=== PATIENT | female | born 1945 | race Caucasian/White ===

== ENCOUNTER 2024-07-01 06:50 | Emergency (ER) | payer MEDICARE, OTHER, SELFPAY ==
[2024-07-01 06:51] VITALS: BP 152/58
[2024-07-01 06:54] VITALS: BP 152/58
[2024-07-01 07:00] VITALS: BP 156/54
[2024-07-01 07:10] VITALS: BMI 29.3
--- NOTE | 2024-07-01 07:14 | ED.GENMED ---
History of Present Illness
General
Chief Complaint: Weakness
Source: patient
Exam Limitations: none
Time Seen by Provider: 07/01/24 07:07
History of Present Illness
History of Present Illness:
See MDM
Past History
Past History
ED Past Medical History: COPD, HTN, Hypercholesterolemia, Hypothyroidism, Psychiatric (ADHD, bipolar disorder, psychosis), Other (Glaucoma) and Other (Spinal Stenosis, with chronic low back pain, narcotic dependent)
ED Past Surgical History: and Other (Hernia repair, breast augmentation)
Social History
Tobacco: Former smoker
Alcohol: Occasional
Drug: None
Personal:
Living: alone
Employment: Retired
Family History
Family History: Other (Family history of depression); Negative CAD
Phy Exam
Physical Exam
Physical Exam:
See MDM
Course
Orders/Labs/Results
Orders:
Orders
07/01/24 06:55
ECG [Electrocardiogram (*1)] Urgent
Reason for Study: Fatigue / Weakness
07/01/24 06:56
EKG- Treatment ONCE
07/01/24 07:13
CT Head W/o Iv Contrast Urgent
Comment:
Reason For Exam: unsteady, frequent falls
07/01/24 07:29
Straight Cath As Directed
Frequency: One time now
07/01/24 07:30
Complete Blood Count/With Diff Urgent
Comprehensive Metabolic Panel Urgent
Urinalysis Reflex To Culture Urgent
Date Specimen was Collected: 07/01/24
Time Specimen was Collected: 07:15
07/01/24 08:49
Lactic Acid Urgent
07/01/24 09:01
Sodium Bicarbonate 50 meq IV NOW STA
Abnormal Lab Results
07/01/24
07:30
WBC 4.5 L 10^3/uL
(4.8-10.8)
RBC 3.17 L 10^6/uL
(4.20-5.40)
Hgb 10.6 L g/dL
(12.0-16.0)
Hct 31.8 L %
(37.0-47.0)
MCV 100.3 H fL
(81.0-99.0)
MCH 33.4 H pg
(27.0-31.0)
Absolute Lymphs (auto) 0.9 L 10^3/uL
(1.2-3.4)
Monocytes % 9.8 H %
(1.7-9.3)
Potassium 5.6 H mmol/L
(3.5-5.1)
Chloride 115 H mmol/L
(98-107)
Carbon Dioxide 14 L* mmol/L
(22-30)
BUN 45 H mg/dl
(7-17)
Creatinine 2.6 H mg/dL
(0.6-1.0)
07/01/24 07:30
07/01/24 07:30
Vital Signs
Initial and Last Documented VS:
Initial Vital Signs
Temp Pulse Resp BP Pulse Ox
97.8 F 60 19 152/58 97
07/01/24 06:51 07/01/24 06:51 07/01/24 06:51 07/01/24 06:51 07/01/24 06:51
Last Documented Vital Signs
Temp Pulse Resp BP Pulse Ox
97.8 F 59 14 175/58 97
07/01/24 06:51 07/01/24 08:04 07/01/24 08:04 07/01/24 08:04 07/01/24 08:04
MDM/Problems Addressed
Differential Diagnosis Includes:
HPI and MDM Narrative:
78-year-old female presenting with generalized weakness and fatigue. This is associated with dizziness and an unsteady gait. Because of this, patient has been falling frequently. Because she has been feeling lousy, she did not make it to her
dialysis session on Saturday. She is due for dialysis today and will also miss her morning scheduled dialysis. Patient states she does not feel well. She denies headache but states she is dizzy when she walks
Given that she is missing her dialysis, will obtain basic blood work looking for evidence of metabolic abnormalities. Given the unsteady gait and frequent falls, will obtain CT head. Patient states she does make urine but is incontinent. Will
attempt to get urine
Physical exam
General: Well appearing and non-toxic
HEENT: protecting airway
Neck: supple
CV: No evidence of cyanosis. Regular rate and rhythm
Resp: No accessory muscle use
Abd: Non-distended
Extremities: Left arm fistula with palpable thrill
Neuro: alert. Normal finger-nose bilaterally
Psych: Normal affect
Skin: Intact
Problems Addressed including Acute and Chronic Conditions affecting care:
1. Dizziness
Acuity: acute
Prognosis: stable
Details: Given her end-stage renal disease and missing dialysis, we will look for metabolic abnormalities. Given frequent falls and headache, will obtain CT head
Updates
Patient found to have low bicarb level. Underlying concern for worsening kidney dysfunction causing metabolic acidosis as the cause of her symptoms. Nephrology curb sided. Will give amp of bicarb. Nephrology willing to dialyze in the emergency
department but suggested outpatient would be preferable. identification clerk able to change her dialysis schedule later today. Patient is very thankful and feels better after bicarb
Differential Diagnosis (but not limited to): Stroke, metabolic encephalopathy, UTI
Testing considered: Troponin but she denies chest or shortness of breath and EKG is nonischemic
Drug therapy (if applicable): OTC meds, please see d/c instruction regarding Rx drugs
Amount and/or Complexity of Data Reviewed
Clinical info obtained from: Patient
External data reviewed: N/A
Labs I independently reviewed (but not limited to): Low bicarb
Radiology: N/A
Pulse Ox: not hypoxic
EKG independently reviewed: Sinus bradycardia, normal axis, no STEMI
Manager Financial Planning: Sinus rhythm
Critical Care: N/A
Risk of Complication:
Social Determinants of health: Good social support
Discussed with other providers: Nephrology
Escalation of Care includes Admit/Obs: After being observed in the Emergency Department, pt stable for discharge.
Occasional wrong word or 'sound a like' substitutions may have occurred due to the inherent limitations of voice recognition software. Read the chart carefully and recognize, using context, where substitutions have occurred.
*Critical Care Note
Total Time (30-74mins, 75-104mins- exclusive of procedures): Not Applicable
ED Attending Note
-
Portions of this chart may have been created with voice recognition software.� Occasional wrong word or��sound alike� substitutions may have occurred due to the inherent limitations of voice recognition software.
Discharge Plan
Departure
Patient Disposition: Home (Routine Discharge)
Date of Disposition: 07/01/24
Time of Disposition: 09:47
Patient with high blood pressure during this ER visit?: Yes
Discharge Problem:
Renal failure
Instructions: BLOOD PRESSURE
Prescriptions:
No Action
aspirin 81 MG tablet,delayed release (DR/EC)
81 mg PO DAILY
pantoprazole 40 MG tablet,delayed release (DR/EC)
40 mg PO DAILY
latanoprost 1 DROP drops
1 drp BOTH EYES HS
atorvastatin 20 MG tablet
20 mg PO DAILY
lorazepam 1 MG tablet
1 mg PO BIDPRN PRN (Reason: anxiety)
acetaminophen 325 MG tablet
650 mg PO Q6HPRN PRN (Reason: mild pain)
levothyroxine 88 MCG tablet
88 mcg PO DAILY
furosemide 80 MG tablet
80 mg PO DAILY
oxybutynin chloride 10 mg Tablet Extended Release 24hr
10 mg PO DAILY
mirtazapine 15 mg Tablet
15 mg PO HS
buspirone [BuSpar] 15 mg Tablet
15 mg PO BID
metoprolol succinate [Toprol XL] 50 mg Tablet Extended Release 24 Hr
50 mg PO BID
Patient Comments:
07/01/24 not sure if she takes this, recently filled 06/02/24 #180 ecw states unknown taking
Referrals:
Delvis Vieira, [Family Provider] -
Activity Restrictions/Additional Instructions:
Take good care we were able to set up your dialysis appointment later today at 11:20 AM. They will work on ride home.
Please return for any worsening symptoms.
You may return at any time if you have further concerns.
Please follow up with your doctor at the first available appointment, preferably this week.
Thank you for choosing [facility].
Interventions
Interventions:
*Risk Screen - Suicide Last Done: 07/01/24 06:51
*General Assessment Last Done: 07/01/24 06:51
*Neglect/Abuse Screening Last Done: 07/01/24 06:51
ED- Fall Risk Assessment Last Done: 07/01/24 07:10
*ED COVID-19 Vaccine History Last Done: 07/01/24 06:51
ED- Cardiac Assessment Last Done: 07/01/24 07:10
ED- Neurological Assessment Last Done: 07/01/24 07:10
ED- Pulmonary Assessment Last Done: 07/01/24 07:10
Discharge Date and Time
Print Language: SINHAL[place]
[2024-07-01 07:45] LABS: Urine Albumin Trace (Neg - Trace); Urine Bilirubin Negative (Negative); Urine Character Clear (Clear); Urine Color Yellow; Urine Glucose Negative (Negative); Urine Ketone Negative (Negative); Urine Leukocyte Negative (Negative); Urine Nitrite Negative (Negative); Urine Occult Blood Negative (Negative); Urine Specific Gravity 1.015 (<1.030); Urine Urobilinogen Negative (Neg - 1+); Urine pH 6.5 (5.0-9.0)
[2024-07-01 07:49] LABS: % Basophils 1.1 % (0-2); % Eosinophils 1.3 % (0-6); % Immature Granulocytes 0.4 % (0-0.5); % Lymphocytes 20.9 % (20.5-51.1); % Monocytes 9.8 % (1.7-9.3); % Neutrophils 66.5 % (42.2-75.2); Absolute Basophils 0.1 10^3/uL (0-0.2); Absolute Eosinophils 0.1 10^3/uL (0-0.7); Absolute Lymphocytes 0.9 10^3/uL (1.2-3.4); Absolute Monocytes 0.4 10^3/uL (0.1-0.6); Hematocrit 31.8 % (37.0-47.0); Hemoglobin 10.6 g/dL (12.0-16.0); Mean Corp Hgb Conc. 33.3 g/dL (33.0-37.0); Mean Corpuscular Hgb 33.4 pg (27.0-31.0); Mean Corpuscular Volume 100.3 fL (81.0-99.0); Mean Platelet Volume 10.3 fL (7.4-10.4); Nucleated Red Blood Cells % 0 %; Platelet Count 173 10^3/uL (130-400); Red Blood Cell Count 3.17 10^6/uL (4.20-5.40); White Blood Cell Count 4.5 10^3/uL (4.8-10.8)
[2024-07-01 08:04] VITALS: BP 175/58
[2024-07-01 08:13] LABS: ALT (SGPT) 23 U/L (0-35); AST (SGOT) 29 U/L (14-36); Albumin 4.3 g/dl (3.5-5.0); Alkaline Phosphatase 97 U/L (38-126); Blood Urea Nitrogen 45 mg/dl (7-17); Calcium 9.5 mg/dl (8.4-10.2); Carbon Dioxide 14 mmol/L (22-30); Chloride 115 mmol/L (98-107); Estimated Creatinine Clearance 15 ml/min; Glucose 92 mg/dl (70-99); Potassium 5.6 mmol/L (3.5-5.1); Sodium 142 mmol/L (135-145); Total Bilirubin 0.6 mg/dl (0.2-1.3); Total Protein 6.4 g/dl (6.3-8.2); eGFR 18.32
[2024-07-01 09:00] VITALS: BP 146/61
[2024-07-01] MEDS: SODIUM BICARBONATE 50 MEQ IV (09:04)
[2024-07-01 10:00] VITALS: BP 160/83
[2024-07-01 10:24] LABS: Lactic Acid 1.2 mmol/L (0.7-2.0)
== END 2024-07-01 10:37 | disposition home or self-care (01) ==
LOC: EMR 06:50
PROVIDERS: EMERGENCY PHYSICIAN Student in an Organized Health Care Education/Training Program; FAMILY PHYSICIAN Family Medicine
DX: N18.6 End stage renal disease (principal); J44.9 Chronic obstructive pulmonary disease, unspecified; I12.0 Hypertensive chronic kidney disease with stage 5 chronic kidney disease or end stage renal disease; Z99.2 Dependence on renal dialysis; E03.9 Hypothyroidism, unspecified; E78.00 Pure hypercholesterolemia, unspecified; F31.9 Bipolar disorder, unspecified; F90.9 Attention-deficit hyperactivity disorder, unspecified type; H40.9 Unspecified glaucoma; Z86.73 Personal history of transient ischemic attack (TIA), and cerebral infarction without residual deficits; Z87.891 Personal history of nicotine dependence
CPT/HCPCS: 99284; 96374; 70450; 80053; 81003; 83605; 85025; 93005

== ENCOUNTER 2024-12-07 05:55 | Emergency (ER) | payer MEDICARE, OTHER, SELFPAY ==
[2024-12-07 05:58] VITALS: BP 166/64
[2024-12-07 06:27] VITALS: BMI 29.4
--- NOTE | 2024-12-07 06:28 | ED.GENMED ---
History of Present Illness
General
Chief Complaint: Musculo-Skeletal Complaint
Source: patient
Exam Limitations: none
Time Seen by Provider: 12/07/24 06:06
Nursing documentation reviewed up to this point in time: agreed with
History of Present Illness
History of Present Illness:
79-year-old female with history as noted presents to the ER for evaluation of a left wrist injury. Patient reports that about 3 nights ago she lost her balance and fell and struck her left wrist/hand on a chair leg. She says initially she only had
mild soreness, was able to get up on her own and did not have any other injuries and so she did not seek evaluation. Last night she says that the pain became more intense and she had trouble sleeping and so she came to the emergency room to be
evaluated. She denies any other injuries�denies any head strike, no headache, no neck pain, no back pain, no chest or abdominal pain. She denies any pain in her legs and has been ambulatory since the fall. She is on aspirin but no other blood
thinners. Of note she is on dialysis, was due for dialysis today but come to the ER.
Past History
Past History
ED Past Medical History: COPD, HTN, Hypercholesterolemia, Hypothyroidism, Psychiatric (ADHD, bipolar disorder, psychosis), Other (Glaucoma) and Other (Spinal Stenosis, with chronic low back pain, narcotic dependent)
ED Past Surgical History: and Other (Hernia repair, breast augmentation)
Social History
Tobacco: Former smoker
Alcohol: Occasional
Drug: None
Personal:
Living: alone
Employment: Retired
Family History
Family History: Other (Family history of depression); Negative CAD
Review of Systems
Review of Systems
All Other Systems: ROS reviewed and negative except as documented in HPI and ROS
Constitutional: Denies fever or chills
Respiratory: Denies cough or trouble breathing
Cardiac: Denies chest pain
ABD/GI: Denies abdominal pain, nausea or vomiting
: Denies flank pain
Musculoskeletal: Reports joint pain (Left wrist pain/hand pain); Denies neck pain or back pain
Neurological: Denies headache
Phy Exam
Physical Exam
Physical Exam:
General: Awake, alert, oriented x3; no acute distress
Head: Normocephalic, atraumatic
Eyes: Conjunctiva normal
Throat: Airway intact, handling secretions
Neck: Trachea midline, no cervical spine tenderness
Back: No tenderness in the thoracic or lumbar spine
Lungs: Breathing comfortably not in distress
Heart: Regular rate; no chest wall tenderness
Abd: Soft, non distended, nontender
Neuro: Cranial nerves grossly intact, speech fluid; motor and sensory intact radial, median, ulnar nerve distribution left upper extremity
Skin: no rash, no lacerations or abrasions, no bruising to the left upper extremity
Extremities: Patient has no significant swelling of the left wrist, mild to moderate tenderness along the distal left ulna, no tenderness of the distal radius or in the anatomic snuffbox, no tenderness of the metacarpals she is able to make a fist;
she does have full active range of motion of the left wrist although she has pain with supination and pronation, flexion and extension; no tenderness in the left elbow or shoulder she does notably have her AV fistula in the left upper arm; right
upper extremity and lower extremities are atraumatic and nontender
Scores
Heart Failure Risk
Heart Failure Risk Score: Not Applicable
Heart Score for Chest Pain Patients
STEMI patient?: Not applicable
Withdrawal Assessment of Alcohol
Withdrawal Assessment Completed?: Not applicable
Course
Orders/Labs/Results
Orders:
Orders
12/07/24 06:12
Morphine Sulfate 4 mg IV NOW STA
12/07/24 06:13
Ondansetron Injectable [Zofran] 4 mg IV NOW STA
12/07/24 06:27
Oxycodone/Acetaminophen [Percocet 5/325] 1 tablet PO NOW STA
CR Wrist - Left Min 3 Views Urgent
Comment:
Reason For Exam: left wrist pain (TTP distal ulna) s/p fall
12/07/24 06:28
CR Hand - Left Min 3 Views Urgent
Comment:
Reason For Exam: left hand pain s/p fall
12/07/24 06:13
12/07/24 06:13
Vital Signs
Initial and Last Documented VS:
Initial Vital Signs
Temp Pulse Resp BP Pulse Ox
36.8 C 84 16 166/64 95
12/07/24 05:58 12/07/24 05:58 12/07/24 05:58 12/07/24 05:58 12/07/24 05:58
Last Documented Vital Signs
Temp Pulse Resp BP Pulse Ox
36.8 C 84 16 166/64 95
12/07/24 05:58 12/07/24 05:58 12/07/24 05:58 12/07/24 05:58 12/07/24 05:58
MDM/Problems Addressed
Differential Diagnosis Includes:
Wrist fracture, wrist sprain, wrist contusion, hand fracture
MDM/Problems Addressed:
79-year-old female presents after a fall with left wrist/hand trauma; no other injuries. Neurovascular exam is intact. Check x-ray of the left wrist and hand. Treat pain. Reassess after the above.
X-rays of the wrist and hand reviewed by me no acute fracture noted. Will place in volar splint for support of suspected wrist sprain, contusion also consideration although no significant swelling or bruising. Referred to hand surgery for
persistent symptoms. Stable for discharge�symptoms well-controlled here will provide short-term prescription for breakthrough pain. Urged her to go to dialysis and she agreed.
Chronic conditions affecting care:
ESRD on dialysis
Acute Exacerbation and/or Progression of Chronic Illness:
Acutely hypertensive likely pain related�treat pain but no emergent antihypertensives indicated for now
Acute Exacerbation and/or Progression of Chronic Illness: HTN
*Radiology
Radiology exam reviewed: preliminary read by ED provider and radiology read reviewed
*Pulse Oximetry
Patient hypoxic: no
*Critical Care Note
Total Time (30-74mins, 75-104mins- exclusive of procedures): Not Applicable
Data Reviewed
Source: patient
ED Attending Note
-
Portions of this chart may have been created with voice recognition software.� Occasional wrong word or��sound alike� substitutions may have occurred due to the inherent limitations of voice recognition software.
Discharge Plan
Departure
Patient Disposition: Home (Routine Discharge)
Date of Disposition: 12/07/24
Time of Disposition: 07:29
Patient with high blood pressure during this ER visit?: Yes
Discharge Problem:
Left wrist sprain
Instructions: Wrist Sprain ED
Prescriptions:
New
oxycodone-acetaminophen [Percocet] 5-325 mg tablet
1 tab PO Q8H PRN (Reason: Pain) Qty: 5 0RF
No Action
aspirin 81 MG tablet,delayed release (DR/EC)
81 mg PO DAILY
pantoprazole 40 MG tablet,delayed release (DR/EC)
40 mg PO DAILY
latanoprost 1 DROP drops
1 drp BOTH EYES HS
atorvastatin 20 MG tablet
20 mg PO DAILY
lorazepam 1 MG tablet
1 mg PO BIDPRN PRN (Reason: anxiety)
acetaminophen 325 MG tablet
650 mg PO Q6HPRN PRN (Reason: mild pain)
levothyroxine 88 MCG tablet
88 mcg PO DAILY
furosemide 80 MG tablet
80 mg PO DAILY
oxybutynin chloride 10 mg Tablet Extended Release 24hr
10 mg PO DAILY
mirtazapine 15 mg Tablet
15 mg PO HS
buspirone [BuSpar] 15 mg Tablet
15 mg PO BID
metoprolol succinate [Toprol XL] 50 mg Tablet Extended Release 24 Hr
50 mg PO BID
Patient Comments:
07/01/24 not sure if she takes this, recently filled 06/02/24 #180 ecw states unknown taking
Referrals:
Delvis Vieira DO [Family Provider] -
Jovi Rodriguez MD [Active] - Call in 1-3 days for appt (Hand specialist)
Activity Restrictions/Additional Instructions:
Thank you for visiting the Emergency Department at [facility].
1. Please schedule a follow up appointment as directed. Call first thing tomorrow morning to make an appointment.
2. If indicated, please take your medications as instructed and indicated on discharge paperwork.
3. If any of your symptoms do not improve, or persist, or become more severe within 6-12 hours, please return to the emergency department for further care.
4. Please return to the emergency department if you develop a headache, neck pain/stiffness, fever greater than 100.4F, chest pain, shortness of breath, persistent nausea, vomiting, slurred speech, difficulty walking, numbness/tingling, weakness,
signs of infection or any other symptoms that are worrisome to you.
Please call [phone] if you have any questions.
Interventions
Interventions:
*Risk Screen - Suicide Last Done: 12/07/24 05:58
*General Assessment Last Done: 12/07/24 05:58
*Neglect/Abuse Screening Last Done: 12/07/24 05:58
ED- Fall Risk Assessment Last Done: 12/07/24 05:58
*ED COVID-19 Vaccine History Last Done: 12/07/24 05:58
ED-Musculoskeletal Assessment Last Done: 12/07/24 05:58
Discharge Date and Time
Print Language: [place]
[2024-12-07] MEDS: PERCOCET 5/325 1 TABLET PO (06:31)
[2024-12-07 08:07] VITALS: BP 151/70
== END 2024-12-07 08:08 | disposition home or self-care (01) ==
LOC: EMR 05:55
PROVIDERS: EMERGENCY PHYSICIAN Emergency Medicine; FAMILY PHYSICIAN Family Medicine
DX: S63.502A Unspecified sprain of left wrist, initial encounter (principal); W01.190A Fall on same level from slipping, tripping and stumbling with subsequent striking against furniture, initial encounter; I12.0 Hypertensive chronic kidney disease with stage 5 chronic kidney disease or end stage renal disease; N18.6 End stage renal disease; Z87.891 Personal history of nicotine dependence
CPT/HCPCS: 99284; 29125; 73110; 73130

== ENCOUNTER 2025-01-26 16:11 | Inpatient (IN) | payer OTHER, SELFPAY ==
[2025-01-26 11:47] VITALS: BP 161/61
[2025-01-26 12:24] LABS: COVID-19 Antigen Negative (Negative)
--- NOTE | 2025-01-26 14:11 | ED.GENMED ---
History of Present Illness
General
Chief Complaint: Pneumonia Symptoms
Source: patient
Exam Limitations: none
Time Seen by Provider: 01/26/25 14:02
History of Present Illness
History of Present Illness:
See MDM
Past History
Past History
ED Past Medical History: COPD, HTN, Hypercholesterolemia, Hypothyroidism, Psychiatric (ADHD, bipolar disorder, psychosis), Other (Glaucoma) and Other (Spinal Stenosis, with chronic low back pain, narcotic dependent)
ED Past Surgical History: and Other (Hernia repair, breast augmentation)
Social History
Tobacco: Former smoker
Alcohol: Occasional
Drug: None
Personal:
Living: alone
Employment: Retired
Family History
Family History: Other (Family history of depression); Negative CAD
Phy Exam
Physical Exam
Physical Exam:
See MDM
Course
Orders/Labs/Results
Orders:
Orders
01/26/25 11:50
CR Chest - 2 Views Urgent
Comment:
Reason For Exam: cough
01/26/25 11:54
COVID-19 Antigen Urgent
Source: Nasal Swab
Influenza A+B Rapid Molecular Urgent
PATRICIO Source: Nasal Swab
Specimen Description:
01/26/25 14:11
Ipratropium/Albuterol Sulfate [Duoneb] 3 ml INH R NOW ONE
01/26/25 14:13
Electrocardiogram (*1) Urgent
Reason for Study: Shortness of Breath
EKG- Treatment ONCE
01/26/25 14:23
Complete Blood Count/With Diff Urgent
Comprehensive Metabolic Panel Urgent
01/26/25 15:33
Azithromycin 500 mg IVPB NOW Azithromycin 500 mg/250 ml [Zithromax Infusion] 500 mg in 250 ml IV NOW
Dexamethasone Sod Phosphate [Decadron] 10 mg IV NOW STA
Ipratropium/Albuterol Sulfate [Duoneb] 3 ml INH R NOW STA
Potassium Chloride [KCl] 20 meq PO NOW STA
Abnormal Lab Results
01/26/25
14:23
RBC 3.82 L 10^6/uL
(4.20-5.40)
Hct 36.0 L %
(37.0-47.0)
MCH 31.7 H pg
(27.0-31.0)
MPV 11.0 H fL
(7.4-10.4)
Potassium 3.3 L mmol/L
(3.5-5.1)
Chloride 97 L mmol/L
(98-107)
Carbon Dioxide 31 H mmol/L
(22-30)
BUN 38 H mg/dl
(7-17)
Creatinine 3.3 H mg/dL
(0.6-1.0)
Glucose 127 H mg/dl
(70-99)
Alkaline Phosphatase 155 H U/L
(38-126)
01/26/25 14:23
01/26/25 14:23
Vital Signs
Initial and Last Documented VS:
Initial Vital Signs
Temp Pulse Resp BP Pulse Ox
97.2 F 66 16 161/61 93
01/26/25 11:47 01/26/25 11:47 01/26/25 11:47 01/26/25 11:47 01/26/25 11:47
Last Documented Vital Signs
Temp Pulse Resp BP Pulse Ox
97.2 F 66 16 161/61 93
01/26/25 11:47 01/26/25 11:47 01/26/25 11:47 01/26/25 11:47 01/26/25 11:47
MDM/Problems Addressed
Differential Diagnosis Includes:
HPI and MDM Narrative:
79-year-old female presenting for evaluation of productive cough. Her doctor sent her in for further evaluation. Patient states this feels very similar to prior episode where she was diagnosed with pneumonia. She complains of yellow sputum that
has now changed to clear. She complains of wheezing and weakness. On exam, she does have mild expiratory wheezing. Will give DuoNeb. COVID and flu negative. Will obtain chest x-ray and blood
Physical exam
General: Mildly fatigued
HEENT: protecting airway
Neck: appears supple
CV: No evidence of cyanosis. Regular rate and rhythm
Resp: No accessory muscle use. Expiratory wheezing to bases
Abd: Non-distended
Extremities: No deformities
Neuro: alert
Psych: Normal affect
Skin: Intact
Problems Addressed including Acute and Chronic Conditions affecting care:
1. Cough and shortness of breath
Acuity: acute
Prognosis: stable
Details: Will obtain x-ray with concern for pneumonia. Will start DuoNeb for wheezing
Updates
Questionable pneumonia on left lower lung. Given COPD history, will start azithromycin. Patient still symptomatic after DuoNeb. Will start IV steroids and
Differential Diagnosis (but not limited to): Pneumonia, viral syndrome, COPD exacerbation
Testing considered: Lactic acid but she is afebrile
Drug therapy (if applicable): OTC meds, please see d/c instruction regarding Rx drugs
Amount and/or Complexity of Data Reviewed
Clinical info obtained from: Patient
External data reviewed: N/A
Labs I independently reviewed (but not limited to): COVID and flu negative
Radiology: X-ray independently reviewed: Questionable left lower lobe pneumonia
Pulse Ox: not hypoxic
EKG independently reviewed: N/A
Creative Developer: N/A
Critical Care: N/A
Risk of Complication:
Social Determinants of health: Good social support
Discussed with other providers: Hospitalist
Escalation of Care includes Admit/Obs: Given concern for COPD exacerbation, will admit
Occasional wrong word or 'sound a like' substitutions may have occurred due to the inherent limitations of voice recognition software. Read the chart carefully and recognize, using context, where substitutions have occurred.
*Critical Care Note
Total Time (30-74mins, 75-104mins- exclusive of procedures): Not Applicable
ED Attending Note
-
Portions of this chart may have been created with voice recognition software.� Occasional wrong word or��sound alike� substitutions may have occurred due to the inherent limitations of voice recognition software.
Discharge Plan
Departure
Patient Disposition: Admit
Date of Disposition: 01/26/25
Time of Disposition: 15:39
Admit to: Med/Surg
Presentation/result/management discussed w/ accepting MD/DO: Hospitalist
Discharge Problem:
Acute exacerbation of chronic obstructive pulmonary disease
Prescriptions:
No Action
aspirin 81 MG tablet,delayed release (DR/EC)
81 mg PO DAILY
pantoprazole 40 MG tablet,delayed release (DR/EC)
40 mg PO DAILY
latanoprost 1 DROP drops
1 drp BOTH EYES HS
atorvastatin 20 MG tablet
20 mg PO DAILY
lorazepam 1 MG tablet
1 mg PO BIDPRN PRN (Reason: anxiety)
acetaminophen 325 MG tablet
650 mg PO Q6HPRN PRN (Reason: mild pain)
levothyroxine 88 MCG tablet
88 mcg PO DAILY
furosemide 80 MG tablet
80 mg PO DAILY
oxybutynin chloride 10 mg Tablet Extended Release 24hr
10 mg PO DAILY
mirtazapine 15 mg Tablet
15 mg PO HS
buspirone [BuSpar] 15 mg Tablet
15 mg PO BID
metoprolol succinate [Toprol XL] 50 mg Tablet Extended Release 24 Hr
50 mg PO BID
Patient Comments:
07/01/24 not sure if she takes this, recently filled 06/02/24 #180 ecw states unknown taking
oxycodone-acetaminophen [Percocet] 5-325 mg tablet
1 tab PO Q8H PRN (Reason: Pain) Qty: 5 0RF
Referrals:
Delvis Vieira, [Family Provider] -
Interventions
Interventions:
ED- Cardiac Assessment Last Done: 01/26/25 15:17
ED- Pulmonary Assessment Last Done: 01/26/25 15:17
Discharge Date and Time
Print Language: [place]
[2025-01-26 14:36] LABS: Hemoglobin 12.1 g/dL (12.0-16.0); Mean Corp Hgb Conc. 33.6 g/dL (33.0-37.0); Mean Corpuscular Hgb 31.7 pg (27.0-31.0); Mean Corpuscular Volume 94.2 fL (81.0-99.0); Platelet Count 171 10^3/uL (130-400); Red Blood Cell Count 3.82 10^6/uL (4.20-5.40); Red Cell Dist. Width 13.4 % (11.5-14.5)
[2025-01-26] MEDS: DUONEB 3 ML INH ×3 (14:42→19:15)
[2025-01-26 15:18] VITALS: BP 160/63
[2025-01-26 15:19] LABS: % Basophils 0.7 % (0-2); % Eosinophils 0.7 % (0-6); % Immature Granulocytes 0.3 % (0-0.5); % Monocytes 9.2 % (1.7-9.3); % Neutrophils 66.1 % (42.2-75.2); Absolute Lymphocytes 1.4 10^3/uL (1.2-3.4); Absolute Monocytes 0.6 10^3/uL (0.1-0.6); Nucleated Red Blood Cells % 0 %
[2025-01-26 15:31] LABS: ALT (SGPT) 18 U/L (0-35); AST (SGOT) 30 U/L (14-36); Albumin 4.1 g/dl (3.5-5.0); Alkaline Phosphatase 155 U/L (38-126); Blood Urea Nitrogen 38 mg/dl (7-17); Calcium 9.3 mg/dl (8.4-10.2); Carbon Dioxide 31 mmol/L (22-30); Chloride 97 mmol/L (98-107); Glucose 127 mg/dl (70-99); Potassium 3.3 mmol/L (3.5-5.1); Sodium 138 mmol/L (135-145); Total Bilirubin 0.7 mg/dl (0.2-1.3); Total Protein 7.1 g/dl (6.3-8.2); eGFR 13.68
[2025-01-26 16:00] VITALS: BP 178/76
--- NOTE | 2025-01-26 16:02 | HPS.HSE ---
Addendum entered and electronically signed by Manuel Chris MD 01/26/25 17:36:
Stop iv meds prn and resume oral home meds
Original Note:
Family Physician
-
Family Physician: Delvis Vieira
Chief Complaint
-
SOB
History of Present Illness
Patient 79 years old female with past medical history of hypertension, hyperlipidemia, hypothyroidism, end-stage renal disease on hemodialysis, anxiety, COPD, came into the hospital shortness of breath. Patient has been experiencing shortness of
breath associated with cough with yellow sputum production that has cleared for over 1 week. She is also having wheezing. She is not improving much so she went to her doctors and advised her to come to the hospital. She denies chest pain. She
denies fevers or chills. Patient denies any leg pain. She does hemodialysis Saturday and last hemodialysis was last Saturday. In the ER, she was given IV steroids and IV antibiotic. Chest x-ray no significant acute chest
pathology. She was given bronchodilator. She was referred to hospitalist service for further evaluation.
Medical History
Past Medical History
Past Medical History: Reports Other (Hypertension, hyperlipidemia, hypothyroidism, end-stage renal disease on hemodialysis, anxiety, COPD.)
Past Surgical History: Reports Other (, hernia repair, breast augmentation in the past.)
Social History
Tobacco: Former Smoker
Alcohol: None
Drug: None
Family History
Family History: Not pertinent
Allergies / Home Medications
Allergies reflects when Allergies were last updated in [facility].
Home Medications with original date entered in [facility]
Allergy/Medication List:
Allergies
Allergy/AdvReac Type Severity Reaction Status Date / Time
morphine Allergy Nausea / Verified 01/26/25 11:50
Vomiting
Home Medications
aspirin 81 mg tablet,delayed release 81 mg PO DAILY Blood clot prevention/tx 04/09/19
atorvastatin 20 mg tablet 20 mg PO DAILY High cholesterol 03/16/20
latanoprost 0.005 % eye drops 1 drp BOTH EYES HS Eye condition 03/16/20
lorazepam 1 mg tablet 1 mg PO BIDPRN PRN anxiety 03/16/20
levothyroxine 88 mcg tablet 88 mcg PO DAILY hypothyroidism 11/02/20
metoprolol succinate 50 mg tablet,extended release 24 hr (Toprol XL) 50 mg PO BID 07/01/24
ginkgo biloba leaf extract 120 mg-choline bitartrate 110 mg tablet (Brainstron Memory Support) 1 tab PO DAILY 01/26/25
ibuprofen 200 mg tablet (Advil) 400 mg PO Q6HPRN PRN mildpain 01/26/25
Review of Systems
-
A 12 point ROS was completed and negative except as noted: Yes
Physical Exam
Vital Signs
Vital Signs
Temp Pulse Resp BP Pulse Ox
97.2 F 66 16 161/61 93
01/26/25 11:47 01/26/25 11:47 01/26/25 11:47 01/26/25 11:47 01/26/25 11:47
Physical exam:
General: Well Developed, Well Nourished and No Apparent Distress
HEENT: Normocephalic, Atraumatic and Moist Mucous Membranes
Respiratory: Bilateral wheezes; Negative Rales or Rhonchi
Cardiac: Regular Rhythm and S1/S2
GI: Soft, Nontender and Nondistended
Musculoskeletal: No Clubbing, No Cyanosis and No Edema
Neuro: Awake, Alert and Oriented, no neurological deficits
Psych: Calm
Physical Exam
General: Other
Laboratory Results
-
01/26/25 14:23
01/26/25 14:23
Laboratory Results
Total Bilirubin 0.7 mg/dl (0.2-1.3) 01/26/25 14:23
AST 30 U/L (14-36) 01/26/25 14:23
ALT 18 U/L (0-35) 01/26/25 14:23
Alkaline Phosphatase 155 U/L (38-126) H 01/26/25 14:23
Data Reviewed
-
Diagnostic Radiology: Image Personally Visualized and interpreted
Lab Data: Labs Reviewed by me
Impression/Plan
-
IMPRESSION:
Patient 79 years old female with history of hypertension, hyperlipidemia, hypothyroidism, COPD, end-stage renal disease on hemodialysis, came into the hospital shortness of breath cough and found to have acute COPD exacerbation. Patient had
increased risk of morbidity and mortality therefore she will need to be treated in the hospital and monitored accordingly.
PLAN:
Acute COPD exacerbation:
IV steroids, dexamethasone 4 mg IV every 6 hours
Bronchodilators, DuoNebs 4 times daily
Budesonide
Oral azithromycin for bronchitis and anti-inflammatory effect
Seen chest x-ray no evidence of pneumonia
Hypertension:
IV hydralazine as needed for now.
Resume home antihypertensives when list available
End-stage renal disease on hemodialysis:
Nephrology consult for hemodialysis needs-discussed with nephrology today via [facility] text
She is on hemodialysis Saturday. Last dialysis was last Saturday.
Hyperlipidemia:
Resume home statins when list available
Hypothyroidism:
Resume home thyroid replacement when list available
Anxiety:
IV benzodiazepine as needed until list is available-she is known to take benzodiazepines at home.
Chronic back pain:
Tylenol for mild pain
IV Dilaudid as needed for severe pain
DVT prophylaxis:
heparin SQ
Code Status:
Full code
Time spent 75 minutes
[2025-01-26] MEDS: KCL 20 MEQ PO (16:03)
[2025-01-26] MEDS: ZITHROMAX INFUSION 250 IV (16:03)
[2025-01-26] MEDS: DECADRON 10 MG IV (16:03)
--- NOTE | 2025-01-26 16:27 | W.CON.NEPH ---
Consultation
-
Date/Time Consultation Requested: 01/26/2025 3 PM
Date/Time Consultation Performed: 01/26/25 4 PM
Requesting Provider: Dr. Chris
Performing Provider: Dr. Gomez
Reason for Consultation: ESRD
Medical History
-
Chief Complaint: Shortness of breath
History of Present Illness:
This is a 79-year-old female who is well-known to us for her end-stage renal disease on hemodialysis Saturday at [facility]. She has a functional left upper extremity AV fistula. She has hypertension on monotherapy regimen,
hyperlipidemia on statin therapy, hypothyroidism on Synthroid therapy. These issues have been stable for her. In the last 2 weeks she has had issues with shortness of breath and mild coughing. This is continued to persist. She has actually
missed several dialysis treatments in the last 2 weeks as a result of the symptoms. Unfortunately she does not recall why she decided not to go to dialysis on those occasions. Ultimately she saw her primary care physician this morning who had sent
her to the emergency room on suspicion of persistent pneumonia. She is being admitted for said diagnosis. We are asked assist management of her ESRD.
Past Medical History
ESRD, bipolar, paroxysmal atrial fibrillation, hypertension, anemia, spinal stenosis, bilateral breast implants, left AV fistula, stroke, COPD, coronary disease, glaucoma, hernia repair, , hypothyroidism
Social History
Tobacco: Former Smoker
Alcohol: Occasional
Family History
Family History: Not Pertinent
Allergies / Home Medications
Allergy/AdvReac Type Severity Reaction Status Date / Time
morphine Allergy Nausea / Verified 01/26/25 11:50
Vomiting
�Medication �Instructions �Recorded �Confirmed �Type
aspirin 81 mg tablet,delayed 81 mg PO DAILY Blood clot 04/09/19 01/26/25 History
release prevention/tx
atorvastatin 20 mg tablet 20 mg PO DAILY High cholesterol 03/16/20 01/26/25 History
latanoprost 0.005 % eye drops 1 drp BOTH EYES HS Eye condition 03/16/20 01/26/25 History
lorazepam 1 mg tablet 1 mg PO BIDPRN PRN anxiety 03/16/20 01/26/25 History
levothyroxine 88 mcg tablet 88 mcg PO DAILY hypothyroidism 11/02/20 01/26/25 History
metoprolol succinate 50 mg 50 mg PO BID 07/01/24 01/26/25 History
tablet,extended release 24 hr
(Toprol XL)
ginkgo biloba leaf extract 120 1 tab PO DAILY 01/26/25 01/26/25 History
mg-choline bitartrate 110 mg
tablet (Auctionata Memory Support)
ibuprofen 200 mg tablet (Advil) 400 mg PO Q6HPRN PRN mildpain 01/26/25 01/26/25 History
Review of Systems
-
Shortness of breath, fatigue, cough.
All other systems: Negative unless noted
Physical Exam
Vital Signs
Vital Signs
Temp Pulse Resp BP Pulse Ox
97.2 F 66 16 161/61 93
01/26/25 11:47 01/26/25 11:47 01/26/25 11:47 01/26/25 11:47 01/26/25 11:47
Lab Results
WBC 6.0 10^3/uL (4.8-10.8) 01/26/25 14:23
RBC 3.82 10^6/uL (4.20-5.40) L 01/26/25 14:23
Hgb 12.1 g/dL (12.0-16.0) 01/26/25 14:23
Hct 36.0 % (37.0-47.0) L 01/26/25 14:23
Plt Count 171 10^3/uL (130-400) 01/26/25 14:23
Sodium 138 mmol/L (135-145) 01/26/25 14:23
Potassium 3.3 mmol/L (3.5-5.1) L 01/26/25 14:23
Chloride 97 mmol/L (98-107) L 01/26/25 14:
Carbon Dioxide 31 mmol/L (22-30) H 01/26/25 14:23
BUN 38 mg/dl (7-17) H 01/26/25 14:23
Creatinine 3.3 mg/dL (0.6-1.0) H 01/26/25 14:
eGFR 13.68 01/26/25 14:
Glucose 127 mg/dl (70-99) H 01/26/25 14:
Calcium 9.3 mg/dl (8.4-10.2) 01/26/25 14:
Albumin 4.1 g/dl (3.5-5.0) 01/26/25 14:
Physical Exam
Patient is awake alert oriented and in no distress. Mood and affect were pleasant, insight and judgment were good. Pupils are equal round and reactive to light, extraocular movements are intact, sclera were anicteric. Hearing was normal, ears and
nose are intact. Oropharynx was clear. Neck was supple with trachea midline and no thyromegaly. Heart was regular rate and rhythm without rubs. Lower extremities without edema. Lungs were coarse to auscultation bilaterally and with normal
excursion but with rhonchi bilaterally. Abdomen was soft, nontender, with normal active bowel sounds, and no hepatosplenomegaly. Skin was without rash and with normal turgor. AV fistula left upper arm with good thrill and bruit
Data Reviewed
-
Radiology: Image Personally Visualized and interpreted (Chest x-ray 01/26/2025 by my reading shows no acute disease)
Labs: Labs Reviewed by me
Old Records: Reviewed (Reviewed from her dialysis system)
Assessment/Plan
-
Assessment
ESRD
Hypertension
Paroxysmal atrial fibrillation
COPD
Bronchitis
Shortness of breath
Plan
She is due for dialysis tomorrow which will be ordered
Empiric antibiotics for bronchitis
Outpatient medications may be continued from renal perspective
While she does not appear to be volume overloaded, her last dialysis was Saturday and the one prior was last Saturday
[2025-01-26 17:15] VITALS: BP 137/78
--- NOTE | 2025-01-26 17:15 | PTCARENOTE ---
patient arrived from stretcher from ER. denies complaints, denies sob, transferred with supervision to bed. oriented to room and use of call sal, will continue to monitor.
[2025-01-26 17:20] VITALS: BMI 26.7
[2025-01-26] MEDS: PULMICORT 0.25 MG INH (19:15)
[2025-01-26 19:46] VITALS: BMI 26.7
[2025-01-26 19:50] VITALS: BP 172/83
[2025-01-26] MEDS: XALATAN OPHTHALMIC SOLUTION 1 DROP BOTH EYES (20:42)
[2025-01-26] MEDS: TOPROL XL 50 MG PO (20:42)
[2025-01-26] MEDS: DECADRON 4 MG IV (22:09)
[2025-01-26] MEDS: ATIVAN 1 MG PO (22:12)
[2025-01-26 22:25] VITALS: BP 134/84
[2025-01-26 22:39] LABS: Glucose - Point of Care 224 mg/dl (70-99)
--- NOTE | 2025-01-26 23:04 | PTCARENOTE ---
Addendum entered by Arely Medina RN 01/26/25 23:08:
OPERATIONS ANALYST notified, Nsg supv notified
Original Note:
pt called out from room, and was found to be on her knees next to the bed. PT ox3 but noted to be forgetful in conversation. VS 134/84-88-18-97.6- 94%2L Blood Glucose 224. bed alarm placed on bed, pt inst not to get oob without assistance. pt verb
understanding. Call sal within reach.
[2025-01-26] MEDS: HEPARIN 5000 UNITS SC (23:58)
[2025-01-27] MEDS: MELATONIN 5 MG PO (02:37)
[2025-01-27 03:27] VITALS: BP 178/85
[2025-01-27] MEDS: DECADRON 4 MG IV ×2 (04:22→11:52)
[2025-01-27 04:42] VITALS: BMI 26.6
[2025-01-27] MEDS: SYNTHROID 88 MCG PO (05:11)
[2025-01-27 06:38] LABS: Hematocrit 30.4 % (37.0-47.0); Hemoglobin 10.7 g/dL (12.0-16.0); Mean Corp Hgb Conc. 35.2 g/dL (33.0-37.0); Mean Corpuscular Hgb 31.8 pg (27.0-31.0); Mean Corpuscular Volume 90.5 fL (81.0-99.0); Mean Platelet Volume 11.2 fL (7.4-10.4); Platelet Count 147 10^3/uL (130-400); Red Blood Cell Count 3.36 10^6/uL (4.20-5.40); Red Cell Dist. Width 12.8 % (11.5-14.5); White Blood Cell Count 3.4 10^3/uL (4.8-10.8)
[2025-01-27 06:48] LABS: Blood Urea Nitrogen 45 mg/dl (7-17); Calcium 9.5 mg/dl (8.4-10.2); Carbon Dioxide 22 mmol/L (22-30); Chloride 99 mmol/L (98-107); Estimated Creatinine Clearance 13 ml/min; Glucose 184 mg/dl (70-99); Potassium 3.5 mmol/L (3.5-5.1); Sodium 135 mmol/L (135-145); eGFR 16.66
--- NOTE | 2025-01-27 06:59 | W.PN.UPDATE ---
Update Note
Progress Note Update
RN reported patient found to be on knees on the floor next to bed. patient seen and evaluated. Patient Ox3 at present. reports she was trying to reach the remote and slid down to the floor and landed on knees. denies any pain anywhere, denies
dizzines or any discomfort. ROM wnl. no edema cuts noted, mild bruise right knee, which she said its been there prior to admission. stable VS. Fall precautions advised.
[2025-01-27 07:05] VITALS: BP 182/85
[2025-01-27] MEDS: DUONEB 3 ML INH ×3 (07:16→14:55)
[2025-01-27] MEDS: PULMICORT 0.25 MG INH (07:16)
[2025-01-27 07:40] LABS: % Immature Granulocytes 0.6 % (0-0.5); % Lymphocytes 18.6 % (20.5-51.1); % Monocytes 1.5 % (1.7-9.3); % Neutrophils 79.3 % (42.2-75.2); Absolute Lymphocytes 0.6 10^3/uL (1.2-3.4); Absolute Monocytes 0.1 10^3/uL (0.1-0.6); Absolute Neutrophils 2.7 10^3/uL (1.4-6.5); Nucleated Red Blood Cells % 0 %
--- NOTE | 2025-01-27 08:31 | W.PN.HOSP.TC ---
Today's Communication/Plan
-
Decrease steroids. CT of the head
Assessment / Plan
Assessment / Plan
Physical exam:
General: Well Developed, Well Nourished and No Apparent Distress
HEENT: Normocephalic, Atraumatic and Moist Mucous Membranes
Respiratory: Bilateral wheezes; Negative Rales or Rhonchi
Cardiac: Regular Rhythm and S1/S2
GI: Soft, Nontender and Nondistended
Musculoskeletal: No Clubbing, No Cyanosis and No Edema
Neuro: Awake, Alert and Disoriented, no neurological deficits
Psych: Limited judgement and insight today
A/P:
Acute COPD exacerbation:
IV steroids, dexamethasone 4 mg IV every 6 hours--> hold further doses today and switch to oral steroids starting tomorrow
Bronchodilators, DuoNebs 4 times daily
Budesonide
Oral azithromycin for bronchitis and anti-inflammatory effect
Seen chest x-ray no evidence of pneumonia
Discussed with brigette over the phone today
Toxic metabolic encephalopathy/delirium:
CT of the head today
Hold IV steroids
Seroquel
Hypertension:
Continue metoprolol
End-stage renal disease on hemodialysis:
Hemodialysis per nephrology
Hyperlipidemia:
Continue atorvastatin
Hypothyroidism:
Continue levothyroxine 88 mcg p.o. daily
Anxiety:
Continue p.o. Ativan as needed
Chronic back pain:
Tylenol as needed for pain
DVT prophylaxis:
heparin SQ
Code Status:
Full code
Total time spent on today's encounter was 52 minutes which included time spent in counseling the patient/family regarding diagnosis and treatment plan as listed above, goals of care, and symptom management. Case was discussed with nursing staff,
specialists, and care coordinators/case management. All labs and imaging personally reviewed by me. Remainder the time spent in detailed review of previous records, lab data, imaging, and other medical provider documentation.
Anticipated Discharge: 24 - 48 hours
Subjective/Interval History
-
Date of Service: January 27, 2025
Patient receiving hemodialysis today. Less shortness of breath. Patient is alert but confused.
Objective Data
-
Labs:
Laboratory Results
01/27/25
05:59
WBC 3.4 L
Hgb 10.7 L
Hct 30.4 L
Plt Count 147
Sodium 135
Potassium 3.5
Chloride 99
Carbon Dioxide 22
BUN 45 H
Creatinine 2.8 H
Glucose 184 H
Calcium 9.5
Vital Signs:
Vital Signs
Temp Pulse Resp BP Pulse Ox
98.2 F 81 18 182/85 98
01/27/25 07:05 01/27/25 07:21 01/27/25 07:21 01/27/25 07:05 01/27/25 07:21
I&O
01/26/25 01/27/25 01/28/25
06:59 06:59 06:59
Intake Total 240 / 240
Balance 240 / 240
[2025-01-27 09:01] LABS: Glucose - Point of Care 122 mg/dl (70-99)
--- NOTE | 2025-01-27 09:53 | W.PN.NEPH.HD ---
Assessment
-
pt seen during HD
vitals stable, SBP 160
wean O2 as possible
improving resp symp per pt
AVF functions well
Progress Note - Hemodialysis
-
Date of Service: January 27, 2025
Duration: 30 minutes and 3 hours
Potassium Bath: 4
Calcium Bath: 2.5
Opti-Dialyzer: 160
Ultrafiltration: Other (2-2.5kg)
Blood Flow: 400
Dialysate Flow: 600
Heparin: no
EPO: no
[2025-01-27 11:05] VITALS: BP 145/64
[2025-01-27] MEDS: HEPARIN SC ×2 (11:51→23:51)
[2025-01-27] MEDS: ZITHROMAX 500 MG PO (11:52)
[2025-01-27] MEDS: ATIVAN 1 MG PO (11:53)
[2025-01-27] MEDS: TOPROL XL 50 MG PO (11:53)
[2025-01-27] MEDS: ASPIR LOW (ENTERIC COATED) 81 MG PO (11:53)
[2025-01-27] MEDS: LIPITOR 20 MG PO (11:53)
[2025-01-27 11:55] LABS: Glucose - Point of Care 144 mg/dl (70-99)
[2025-01-27] MEDS: NOVOLOG FLEXPEN-LOW RESISTANCE SC ×2 (11:55→17:39)
[2025-01-27 15:05] VITALS: BP 161/69
[2025-01-27] MEDS: HEPARIN 5000 UNITS SC (15:36)
--- NOTE | 2025-01-27 16:42 | CM ---
Patient seen at bedside.
dx: COPD
PMH: ESRD on HD, htn, hypothyroid, fall
IA completed
Called brigette Vivar & left message
Patient states lives alone 1 story home
Spoke with Samreen at [facility] - chair time 7:00am --
patient states takes [facility] to dialysis
has a caregiver 2 days a week -
PLOF: Independent, denies using a assistive device
DME: Walker, cane, shower chair
Denies VN/Rehab
tt hospitalist for PT/OT orders
PCP: Delvis Vieira
Pharmacy: [facility]
PLAN: TBD, await PT/OT rec, CM to follow for needs
[2025-01-27 17:40] LABS: Glucose - Point of Care 137 mg/dl (70-99)
[2025-01-27 19:07] VITALS: BP 151/62
[2025-01-27] MEDS: ATIVAN PO (20:00)
--- NOTE | 2025-01-27 20:10 | W.PN.UPDATE ---
Update Note
Progress Note Update
RN reported patient agitated, trying to get out of bed constantly and refusing to take PO medication. will order Ativan 0.5mg IV dose x 1.
[2025-01-27] MEDS: ATIVAN 0.5 MG IV (20:18)
[2025-01-27] MEDS: NSS (PRESERVATIVE FREE) 0.25 ML IV (20:18)
[2025-01-27] MEDS: DUONEB INH (20:45)
[2025-01-27] MEDS: PULMICORT INH (20:46)
[2025-01-27] MEDS: SEROQUEL PO ×2 (21:00→21:22)
[2025-01-27] MEDS: TOPROL XL PO (21:00)
[2025-01-27] MEDS: XALATAN OPHTHALMIC SOLUTION BOTH EYES (21:21)
[2025-01-27 22:45] VITALS: BP 173/84
[2025-01-28] VITALS (9 sets, daily range): BP systolic 110–169; BP diastolic 51–86; PULSE 80; O2SAT 95; BMI 26.5
[2025-01-28] MEDS: SYNTHROID 88 MCG PO (06:06)
[2025-01-28 06:40] LABS: % Basophils 0.1 % (0-2); % Immature Granulocytes 0.8 % (0-0.5); % Lymphocytes 9.5 % (20.5-51.1); % Monocytes 7.3 % (1.7-9.3); % Neutrophils 82.3 % (42.2-75.2); Absolute Immature Granulocytes 0.1 10^3/uL (0-0.05); Absolute Lymphocytes 1.2 10^3/uL (1.2-3.4); Absolute Monocytes 0.9 10^3/uL (0.1-0.6); Absolute Neutrophils 10.4 10^3/uL (1.4-6.5); Hematocrit 31.7 % (37.0-47.0); Hemoglobin 10.6 g/dL (12.0-16.0); Mean Corp Hgb Conc. 33.4 g/dL (33.0-37.0); Mean Corpuscular Hgb 30.9 pg (27.0-31.0); Mean Corpuscular Volume 92.4 fL (81.0-99.0); Mean Platelet Volume 11.4 fL (7.4-10.4); Nucleated Red Blood Cells % 0 %; Platelet Count 205 10^3/uL (130-400); Red Blood Cell Count 3.43 10^6/uL (4.20-5.40); Red Cell Dist. Width 13.2 % (11.5-14.5); White Blood Cell Count 12.7 10^3/uL (4.8-10.8)
[2025-01-28 06:53] LABS: Blood Urea Nitrogen 34 mg/dl (7-17); Calcium 9.9 mg/dl (8.4-10.2); Carbon Dioxide 28 mmol/L (22-30); Chloride 97 mmol/L (98-107); Estimated Creatinine Clearance 14 ml/min; Glucose 127 mg/dl (70-99); Potassium 3.2 mmol/L (3.5-5.1); Sodium 137 mmol/L (135-145); eGFR 19.08
[2025-01-28] MEDS: NOVOLOG FLEXPEN-LOW RESISTANCE SC ×2 (07:39→12:34)
[2025-01-28] MEDS: HEPARIN 5000 UNITS SC ×3 (07:39→23:08)
[2025-01-28] MEDS: TOPROL XL 50 MG PO ×2 (07:40→21:00)
[2025-01-28] MEDS: DELTASONE 40 MG PO (07:40)
[2025-01-28] MEDS: LIPITOR 20 MG PO (07:40)
[2025-01-28] MEDS: ASPIR LOW (ENTERIC COATED) 81 MG PO (07:40)
[2025-01-28] MEDS: DUONEB 3 ML INH ×4 (08:02→19:36)
[2025-01-28] MEDS: PULMICORT 0.25 MG INH ×2 (08:02→19:36)
[2025-01-28 08:04] LABS: Glucose - Point of Care 107 mg/dl (70-99)
--- NOTE | 2025-01-28 08:50 | W.PN.HOSP.TC ---
Today's Communication/Plan
-
Steroids and bronchodilators
Assessment / Plan
Assessment / Plan
Physical exam:
General: Well Developed, Well Nourished and No Apparent Distress
HEENT: Normocephalic, Atraumatic and Moist Mucous Membranes
Respiratory: Bilateral wheezes; Negative Rales or Rhonchi
Cardiac: Regular Rhythm and S1/S2
GI: Soft, Nontender and Nondistended
Musculoskeletal: No Clubbing, No Cyanosis and No Edema
Neuro: Awake, Alert and Disoriented, no neurological deficits
Psych: Limited judgement and insight today
A/P:
Acute COPD exacerbation:
On oral steroids now
Bronchodilators, DuoNebs 4 times daily
Budesonide
Oral azithromycin for bronchitis and anti-inflammatory effect
Seen chest x-ray no evidence of pneumonia
Discussed with grandson over the phone yesterday
PT OT eval
Toxic metabolic encephalopathy/delirium:
CT of the head unremarkable for acute pathology
Hold IV steroids
Seroquel
Hypertension:
Continue metoprolol
End-stage renal disease on hemodialysis:
Hemodialysis per nephrology
Hyperlipidemia:
Continue atorvastatin
Hypothyroidism:
Continue levothyroxine 88 mcg p.o. daily
Anxiety:
Continue p.o. Ativan as needed
Chronic back pain:
Tylenol as needed for pain
DVT prophylaxis:
heparin SQ
Code Status:
Full code
Anticipated Discharge: 24 - 48 hours
Subjective/Interval History
-
Date of Service: January 28, 2025
Patient feels better overall. Alert but still off. More calm this morning-required IV Ativan last night. She does have some wheezing. Afebrile
Objective Data
-
Labs:
Laboratory Results
01/28/25
05:37
WBC 12.7 H
Hgb 10.6 L
Hct 31.7 L
Plt Count 205 D
Sodium 137
Potassium 3.2 L
Chloride 97 L
Carbon Dioxide 28
BUN 34 H
Creatinine 2.5 H
Glucose 127 H
Calcium 9.9
Vital Signs:
Vital Signs
Temp Pulse Resp BP Pulse Ox
97.5 F 74 18 169/74 98
01/28/25 07:38 01/28/25 08:06 01/28/25 08:06 01/28/25 07:40 01/28/25 08:06
I&O
01/27/25 01/28/25 01/29/25
06:59 06:59 06:59
Intake Total 240 / 240 600 / 600
Balance 240 / 240 600 / 600
[2025-01-28 09:02] LABS: Glycohemoglobin (HgbA1c) 5.5 % (4.0-5.6)
[2025-01-28] MEDS: ZITHROMAX 500 MG PO (09:25)
[2025-01-28] MEDS: KCL 40 MEQ PO (09:25)
[2025-01-28] MEDS: ATIVAN 1 MG PO ×2 (09:33→15:08)
[2025-01-28 11:32] LABS: Glucose - Point of Care 126 mg/dl (70-99)
--- NOTE | 2025-01-28 13:17 | W.PN.NEPH.PH ---
Today's Communication / Plan
-
HD tomorrow
Assessment/Plan
-
Assessment
ESRD
Hypertension
Paroxysmal atrial fibrillation
COPD
Bronchitis
Shortness of breath
Plan
confusion and agitation overnight
HD tomorrow
replace k and high k bath in HD
antibiotics for bronchitis
-
-
Date of Service: January 28, 2025
CC / HPI / ROS
-
Chief Complaint:
ESRD
History of Present Illness:
tolerated HD yesterday
now 1:1 due to agitation and confusion overnight
on steroids and O2 2lit
no fever, k low 3.2
Review of Systems:
no cp
cough is present, sob improving
knows that she had behavior issues overnight
Labs
-
Labs:
WBC 12.7 10^3/uL (4.8-10.8) H 01/28/25 05:37
RBC 3.43 10^6/uL (4.20-5.40) L 01/28/25 05:37
Hgb 10.6 g/dL (12.0-16.0) L 01/28/25 05:37
Hct 31.7 % (37.0-47.0) L 01/28/25 05:37
Plt Count 205 10^3/uL (130-400) D 01/28/25 05:37
Sodium 137 mmol/L (135-145) 01/28/25 05:37
Potassium 3.2 mmol/L (3.5-5.1) L 01/28/25 05:37
Chloride 97 mmol/L (98-107) L 01/28/25 05:37
Carbon Dioxide 28 mmol/L (22-30) 01/28/25 05:37
BUN 34 mg/dl (7-17) H 01/28/25 05:37
Creatinine 2.5 mg/dL (0.6-1.0) H 01/28/25 05:37
eGFR 19.08 01/28/25 05:37
Glucose 127 mg/dl (70-99) H 01/28/25 05:37
Calcium 9.9 mg/dl (8.4-10.2) 01/28/25 05:37
Albumin 4.1 g/dl (3.5-5.0) 01/26/25 14:23
Physical Exam
-
Vital Signs:
Vital Signs
Temp Pulse Resp BP Pulse Ox
97.7 F 77 18 153/73 98
01/28/25 11:05 01/28/25 11:32 01/28/25 11:32 01/28/25 11:05 01/28/25 11:32
Cardiovascular:: Regular rate and rhythm
Respiratory:: Bilateral: Rhonchi
Lung Excursion:: Normal
Abdomen:: Nontender and Soft
Extremity Edema:: None: Bilateral:
Fox Catheter: No
--- NOTE | 2025-01-28 15:02 | PTCARENOTE ---
Pt calm and cooperative w/ staff. AOx 2-3, forgetful, unsure of date at times. Restraints removed 0730 and 1:1 dc'd, @ 1200. Will continue, bed and chair alarm in place.
--- NOTE | 2025-01-28 15:02 | CM ---
Spoke with patient bedside, less confused today.
Oxygen via NC 2L.
PT/OT eval: recommending skilled rehab.
Patient agreeavble to [facility], referals sent.
Grandson updated and in agreement.
Plan: skilled rehab once medically stable and bed available. Will need insurance auth.
--- NOTE | 2025-01-28 15:15 | CM ---
Patient seen bedside.
Patient eval by PT/OT with recommendations for skilled rehab.
Options reviewed, patient agreeable to [facility] and [facility].
Referrals sent.
Plan; skilled rehab once bed available, medically stable and insurance auth obtained.
[2025-01-28 16:49] LABS: Glucose - Point of Care 241 mg/dl (70-99)
[2025-01-28 16:59] LABS: Glucose - Point of Care 257 mg/dl (70-99)
[2025-01-28] MEDS: NOVOLOG FLEXPEN-LOW RESISTANCE 3 UNITS SC (17:21)
[2025-01-28] MEDS: ROBITUSSIN 100 MG PO (20:05)
[2025-01-28] MEDS: TOPROL XL PO (20:06)
[2025-01-28] MEDS: SEROQUEL 25 MG PO (21:02)
[2025-01-28] MEDS: XALATAN OPHTHALMIC SOLUTION 1 DROP BOTH EYES (21:03)
[2025-01-28 21:39] LABS: Glucose - Point of Care 162 mg/dl (70-99)
[2025-01-29 03:49] VITALS: BP 136/57
[2025-01-29] MEDS: SYNTHROID 88 MCG PO (05:07)
[2025-01-29] MEDS: ROBITUSSIN 100 MG PO ×2 (05:53→12:18)
[2025-01-29 06:00] VITALS: BMI 26.7
[2025-01-29 07:23] VITALS: BP 119/75
[2025-01-29] MEDS: DELTASONE 40 MG PO (07:29)
[2025-01-29] MEDS: ATIVAN 1 MG PO (07:29)
[2025-01-29] MEDS: ASPIR LOW (ENTERIC COATED) 81 MG PO (07:29)
[2025-01-29] MEDS: LIPITOR 20 MG PO (07:30)
[2025-01-29] MEDS: HEPARIN 5000 UNITS SC ×2 (07:30→17:02)
[2025-01-29] MEDS: ZITHROMAX 500 MG PO (07:30)
[2025-01-29] MEDS: TOPROL XL PO (07:30)
[2025-01-29] MEDS: PULMICORT 0.25 MG INH ×2 (07:55→19:56)
[2025-01-29] MEDS: DUONEB 3 ML INH ×4 (07:55→19:56)
[2025-01-29] MEDS: HEPARIN 500 UNITS IV ×2 (08:05→08:59)
[2025-01-29 08:08] LABS: Glucose - Point of Care 112 mg/dl (70-99)
[2025-01-29] MEDS: NOVOLOG FLEXPEN-LOW RESISTANCE SC (08:10)
[2025-01-29 08:27] LABS: Hematocrit 29.3 % (37.0-47.0)
--- NOTE | 2025-01-29 08:44 | PTCARENOTE ---
Received pt awake and oriented, although slightly forgetful and anxious. PO Ativan given, see MAR. HD initiated at bedside.
--- NOTE | 2025-01-29 08:53 | W.PN.HOSP.TC ---
Today's Communication/Plan
-
Neurology eval. Continue steroids and antipsychotics for now
Assessment / Plan
Assessment / Plan
Physical exam:
General: Well Developed, Well Nourished and No Apparent Distress
HEENT: Normocephalic, Atraumatic and Moist Mucous Membranes
Respiratory: Bilateral wheezes; Negative Rales or Rhonchi
Cardiac: Regular Rhythm and S1/S2
GI: Soft, Nontender and Nondistended
Musculoskeletal: No Clubbing, No Cyanosis and No Edema
Neuro: Awake, Alert and Disoriented, no neurological deficits
Psych: Limited judgement and insight today
A/P:
Acute COPD exacerbation:
On oral steroids now adn decrease in am
Bronchodilators, DuoNebs 4 times daily
Budesonide
Oral azithromycin for bronchitis and anti-inflammatory effect
Seen chest x-ray no evidence of pneumonia
Discussed with brigette over the phone prior
PT OT eval
Toxic metabolic encephalopathy/delirium:
CT of the head unremarkable for acute pathology
Hold IV steroids
Seroquel
Ask neurology for evaluation
Hypertension:
Continue metoprolol
End-stage renal disease on hemodialysis:
Hemodialysis per nephrology
Hyperlipidemia:
Continue atorvastatin
Hypothyroidism:
Continue levothyroxine 88 mcg p.o. daily
Anxiety:
Continue p.o. Ativan as needed
Chronic back pain:
Tylenol as needed for pain
DVT prophylaxis:
heparin SQ
Code Status:
Full code
Anticipated Discharge: 24 - 48 hours
Subjective/Interval History
-
Date of Service: January 29, 2025
Patient remains confused. Still on oxygen supplementation. Some wheezing and less shortness of breath and cough. Afebrile
Objective Data
-
Labs:
Laboratory Results
01/29/25
07:40
Hgb 10.0 L
Hct 29.3 L
Sodium Pending
Potassium Pending
Chloride Pending
Carbon Dioxide Pending
Vital Signs:
Vital Signs
Temp Pulse Resp BP Pulse Ox
97.3 F 81 17 119/75 96
01/29/25 07:23 01/29/25 07:57 01/29/25 07:57 01/29/25 07:23 01/29/25 07:57
I&O
01/28/25 01/29/25 01/30/25
06:59 06:59 06:59
Intake Total 600 / 600 740 / 740
Balance 600 / 600 740 / 740
[2025-01-29 09:01] LABS: Carbon Dioxide 27 mmol/L (22-30); Chloride 98 mmol/L (98-107); Potassium 3.5 mmol/L (3.5-5.1); Sodium 133 mmol/L (135-145)
[2025-01-29] MEDS: FLEXBUMIN 25% FOR HEMODIALYSIS 12.5 GRAMS IV (10:00)
[2025-01-29] MEDS: MANNITOL 25% 12.5 GRAMS IV (10:09)
--- NOTE | 2025-01-29 10:51 | CM ---
Addendum entered by Fouzia Moreno 01/29/25 15:32:
Still waiting to see if [facility] will accept ([facility]).
If accepted, will need insurance auth thru [facility].
Plan: skilled rehab once accepted by facility/dialysis unit.
Original Note:
Patient seen bedside on HD.
Patient agreeable to brigette Wing updated.
Clinicals faxed to [facility].
Sabi/[facility] Cal[facility] updated.
[facility] fax # [phone], jackelyn Gray
--- NOTE | 2025-01-29 10:54 | W.PN.NEPH.HD ---
Assessment
-
Seen on HD. still slightly confused. tired. VSS, access ok
still coughing
continue abx
Progress Note - Hemodialysis
-
Date of Service: January 29, 2025
Duration: 30 minutes and 3 hours
Potassium Bath: 4
Calcium Bath: 2.5
Opti-Dialyzer: 160
Ultrafiltration: Other (1kg)
Blood Flow: 400
Dialysate Flow: 600
Heparin: 500x2
EPO: 0
[2025-01-29 11:00] VITALS: BP 124/52
[2025-01-29 12:08] LABS: Glucose - Point of Care 161 mg/dl (70-99)
[2025-01-29] MEDS: NOVOLOG FLEXPEN-LOW RESISTANCE 1 UNITS SC ×2 (12:17→17:03)
[2025-01-29 15:03] VITALS: BP 147/70
--- NOTE | 2025-01-29 16:30 | CON.NEURO ---
Neuro Assessment/Plan
Assessment
head CT imgs rev'd, diffuse atrophy, multiple chronic lacunes left thalamus, bilateral basal ganglia, right cerebellum
Toxic metabolic encephalopathy
with multiple underlying medical issues including COPD, ESRD and diffuse atrophy and multiple strokes, suspect underlying cognitive impairment/dementia of vascular or mixed etiology, but cannot assess in the acute setting; and it will result in
slower/potentially incomplete recovery
Plan
no further workup recommended
stroke secondary prevention continue ASA 81, Lipitor 20
and she can continue her natural memory supplement
Consultation
Order
Date of Consultation: 01/29/25
Requesting Provider: Manuel Chris
Reason for Consult: AMS
Subjective/Objective
Subjective Data
Date of Service: January 29, 2025
79 years old female with past medical history of hypertension, hyperlipidemia, hypothyroidism, end-stage renal disease on hemodialysis, anxiety, COPD, came into the hospital shortness of breath. She was treated for COPD exacerbation.
She remains confused. when seen this afternoon, she complains of sleepiness, told me her age and followed some simple commands
Objective Data
Vital Signs
Temp Pulse Resp BP Pulse Ox
36.6 C 82 20 147/70 94
01/29/25 15:03 01/29/25 15:03 01/29/25 15:03 01/29/25 15:03 01/29/25 15:03
Lab Results
01/29/25 07:40
01/29/25 07:40
Sodium 133 mmol/L (135-145) L 01/29/25 07:40
Potassium 3.5 mmol/L (3.5-5.1) 01/29/25 07:40
BUN 34 mg/dl (7-17) H 01/28/25 05:37
Glucose 127 mg/dl (70-99) H 01/28/25 05:37
Calcium 9.9 mg/dl (8.4-10.2) 01/28/25 05:37
Patient Allergies
morphine Allergy (Verified 01/26/25 18:43)
Nausea / Vomiting
Physical Exam
-
Awake and alert, oriented to age, slow to process
left facial droop
moving all extremities
Medications
-
Active Medications
Generic Name Dose Route Start Last Admin
Trade Name Freq PRN Reason Stop Dose Admin
Acetaminophen 650 mg 01/26/25 16:28
Acetaminophen 325 Mg Tablet PO 02/23/25 16:27
Q6HPRN PRN
mild pain/ fever>100.5F
Albumin Human 12.5 grams 01/29/25 08:00 01/29/25 10:00
Albumin 12.5 Grams/50 Ml Bag *For Hemodialysis* IV 01/29/25 23:59 12.5 grams
HD-Q1HPRN PRN Administration
SBP < 90 mmHg
Albuterol/Ipratropium 3 ml 01/26/25 20:00 01/29/25 15:37
Ipratropium 0.5/Albuterol 3 Mg (3 Ml Ampul) INH 3 ml
R QID MELISSA Administration
Protocol
Aspirin 81 mg 01/27/25 08:00 01/29/25 07:29
Aspirin 81 Mg (Enteric Coated) Tablet PO 02/24/25 07:59 81 mg
DAILY MELISSA Administration
Atorvastatin Calcium 20 mg 01/27/25 08:00 01/29/25 07:30
Atorvastatin (Lipitor) 20 Mg Tablet PO 02/24/25 07:59 20 mg
DAILY MELISSA Administration
Azithromycin 500 mg 01/27/25 08:00 01/29/25 07:30
Azithromycin 250 Mg Tablet PO 500 mg
DAILY MELISSA Administration
Bisacodyl 10 mg 01/26/25 17:03
Bisacodyl 10 Mg Rectal Suppository RECTAL 02/23/25 17:02
[id number] PRN
constipation
Budesonide 0.25 mg 01/26/25 20:00 01/29/25 07:55
Budesonide (Pulmicort Respules) 0.25 Mg/2 Ml INH 0.25 mg
R BID MELISSA Administration
Protocol
Dextrose 12.5 grams 01/27/25 08:33
Dextrose 50% (0.5 Grams/Ml) 50 Ml Syringe IV 02/24/25 08:32
[id number] PRN
hypoglycemia
Protocol
Glucagon 1 mg 01/27/25 08:33
Glucagon 1 Mg Vial IM 02/24/25 08:32
PRN PRN
hypoglycemia
Protocol
Guaifenesin 100 mg 01/28/25 19:40 01/29/25 12:18
Guaifenesin Oral Solution (200 Mg/10 Ml) Cup PO 02/25/25 19:39 100 mg
Q4HPRN PRN Administration
cough
Heparin Sodium 5,000 units 01/27/25 00:00 01/29/25 07:30
Heparin 5,000 Units/Ml 1 Ml Vial SC 02/24/25 00:00 5,000 units
Q8 MELISSA Administration
Insulin Aspart 0 units 01/27/25 11:30 01/29/25 12:17
Insulin Aspart Low Resistance 300 Units/3 Ml Pen.Injctr SC 02/24/25 11:29 1 units
AC MELISSA Administration
Protocol
Latanoprost 0 drop 01/26/25 22:00 01/28/25 21:03
Latanoprost 0.005% (Ophthalmic Solution) 2.5 Ml Bottle BOTH EYES 02/23/25 21:59 1 drop
HS MELISSA Administration
Levothyroxine Sodium 88 mcg 01/27/25 06:00 01/29/25 05:07
Levothyroxine 88 Mcg Tablet PO 02/24/25 05:59 88 mcg
DAILY @ 0600 MELISSA Administration
Lorazepam 1 mg 01/26/25 17:33 01/29/25 07:29
Lorazepam 1 Mg Tablet PO 02/23/25 17:32 1 mg
BIDPRN PRN Administration
anxiety
Mannitol 12.5 grams 01/29/25 08:00 01/29/25 10:09
Mannitol 25% (12.5 Grams/50 Ml) Vial IV 01/29/25 23:59 12.5 grams
HD-Q1HPRN PRN Administration
SBP < 90 mmHg
Metoprolol Succinate 50 mg 01/26/25 20:00 01/29/25 07:30
Metoprolol 50 Mg Extended Release Tablet PO 02/23/25 19:59 Not Given
BID MELISSA
Polyethylene Glycol 17 grams 01/26/25 17:03
Polyethylene Glycol Powder 17 Grams Packet PO 02/23/25 17:02
DAILYPRN PRN
constipation
Prednisone 30 mg 01/30/25 08:00
Prednisone 20 Mg Tablet PO 02/27/25 07:59
DAILY MELISSA
Quetiapine Fumarate 25 mg 01/27/25 20:00 01/28/25 21:02
Quetiapine 25 Mg Tablet PO 02/24/25 19:59 25 mg
HS MELISSA Administration
Senna/Docusate Sodium 1 tablet 01/26/25 17:03
Docusate W/Senna (Germania-Colace) Tablet PO 02/23/25 17:02
BIDPRN PRN
constipation
Sodium Chloride 0 flush 01/26/25 17:00
Sodium Chloride 0.9% (Flush) Syringe IV 02/23/25 16:59
PER PROTOCOL MELISSA
Home Medications
�Medication �Instructions �Recorded
aspirin 81 mg tablet,delayed 81 mg PO DAILY Blood clot 04/09/19
release prevention/tx
atorvastatin 20 mg tablet 20 mg PO DAILY High cholesterol 03/16/20
latanoprost 0.005 % eye drops 1 drp BOTH EYES HS Eye condition 03/16/20
lorazepam 1 mg tablet 1 mg PO BIDPRN PRN anxiety 03/16/20
levothyroxine 88 mcg tablet 88 mcg PO DAILY hypothyroidism 11/02/20
metoprolol succinate 50 mg 50 mg PO BID Heart Disease/BP 07/01/24
tablet,extended release 24 hr
(Toprol XL)
ginkgo biloba leaf extract 120 1 tab PO DAILY Supplement 01/26/25
mg-choline bitartrate 110 mg
tablet ([facility] Memory Support)
ibuprofen 200 mg tablet (Advil) 400 mg PO Q6HPRN PRN mild pain 01/26/25
[2025-01-29 16:57] LABS: Glucose - Point of Care 179 mg/dl (70-99)
[2025-01-29 19:23] VITALS: BP 135/52
[2025-01-29] MEDS: TOPROL XL 50 MG PO (20:10)
[2025-01-29] MEDS: SEROQUEL 25 MG PO (21:12)
[2025-01-29] MEDS: XALATAN OPHTHALMIC SOLUTION 1 DROP BOTH EYES (21:12)
[2025-01-29] MEDS: TYLENOL 650 MG PO (21:12)
[2025-01-29 23:28] VITALS: BP 138/60
[2025-01-30] VITALS (7 sets, daily range): BP systolic 124–167; BP diastolic 58–75; PULSE 81; O2SAT 94
[2025-01-30 01:08] LABS: Glucose - Point of Care 135 mg/dl (70-99)
[2025-01-30] MEDS: HEPARIN 5000 UNITS SC ×3 (01:17→16:41)
[2025-01-30] MEDS: SYNTHROID 88 MCG PO (06:08)
[2025-01-30 06:55] LABS: Hematocrit 28.1 % (37.0-47.0); Hemoglobin 9.7 g/dL (12.0-16.0)
[2025-01-30 07:30] LABS: Carbon Dioxide 27 mmol/L (22-30); Chloride 98 mmol/L (98-107); Potassium 3.4 mmol/L (3.5-5.1); Sodium 134 mmol/L (135-145)
[2025-01-30] MEDS: DUONEB 3 ML INH ×4 (07:33→20:07)
[2025-01-30] MEDS: PULMICORT 0.25 MG INH ×2 (07:33→20:07)
[2025-01-30 08:06] LABS: Glucose - Point of Care 97 mg/dl (70-99)
[2025-01-30] MEDS: ASPIR LOW (ENTERIC COATED) 81 MG PO (08:23)
[2025-01-30] MEDS: NOVOLOG FLEXPEN-LOW RESISTANCE SC ×2 (08:23→11:45)
[2025-01-30] MEDS: DELTASONE 30 MG PO (08:24)
[2025-01-30] MEDS: ZITHROMAX 500 MG PO (08:24)
[2025-01-30] MEDS: TOPROL XL 50 MG PO ×2 (08:25→21:34)
[2025-01-30] MEDS: LIPITOR 20 MG PO (08:25)
[2025-01-30] MEDS: KCL 40 MEQ PO (08:36)
[2025-01-30] MEDS: ATIVAN 1 MG PO ×2 (08:36→21:34)
--- NOTE | 2025-01-30 09:24 | W.PN.HOSP.TC ---
Addendum entered and electronically signed by Manuel Chris MD 01/31/25 12:07:
stop seroquel
Original Note:
Today's Communication/Plan
-
Steroids and antibiotics and bronchodilators. Discharge planning
Assessment / Plan
Assessment / Plan
Physical exam:
General: Well Developed, Well Nourished and No Apparent Distress
HEENT: Normocephalic, Atraumatic and Moist Mucous Membranes
Respiratory: Bilateral wheezes; Negative Rales or Rhonchi
Cardiac: Regular Rhythm and S1/S2
GI: Soft, Nontender and Nondistended
Musculoskeletal: No Clubbing, No Cyanosis and No Edema
Neuro: Awake, Alert and Disoriented, no neurological deficits
Psych: Limited judgement and insight today
A/P:
Acute COPD exacerbation:
On oral steroids, prednisone down to 30 mg p.o. daily today
Bronchodilators, DuoNebs 4 times daily
Budesonide
Oral azithromycin for bronchitis and anti-inflammatory effect, last day will be tomorrow.
Seen chest x-ray no evidence of pneumonia
Discussed with brigette over the phone prior
PT OT eval
Awaiting housing case manager for discharge disposition
Toxic metabolic encephalopathy/delirium:
CT of the head unremarkable for acute pathology
Hold IV steroids
Seroquel
Ask neurology for evaluation and appreciated input-discussed with neurology
Hypertension:
Continue metoprolol
End-stage renal disease on hemodialysis:
Hemodialysis per nephrology
Hyperlipidemia:
Continue atorvastatin
Hypothyroidism:
Continue levothyroxine 88 mcg p.o. daily
Anxiety:
Continue p.o. Ativan as needed
Chronic back pain:
Tylenol as needed for pain
DVT prophylaxis:
heparin SQ
Code Status:
Full code
Anticipated Discharge: 24 - 48 hours
Subjective/Interval History
-
Date of Service: January 30, 2025
Patient alert and less confused overall. Less shortness of breath. On supplemental oxygen. Afebrile
Objective Data
-
Labs:
Laboratory Results
01/30/25
06:26
Hgb 9.7 L
Hct 28.1 L
Sodium 134 L
Potassium 3.4 L
Chloride 98
Carbon Dioxide 27
Vital Signs:
Vital Signs
Temp Pulse Resp BP Pulse Ox
97.6 F 67 16 163/75 96
01/30/25 07:26 01/30/25 07:36 01/30/25 07:36 01/30/25 07:26 01/30/25 07:36
I&O
01/29/25 01/30/25 01/31/25
06:59 06:59 06:59
Intake Total 740 / 740 720 / 720
Balance 740 / 740 720 / 720
--- NOTE | 2025-01-30 09:58 | W.PN.NEPH.PH ---
Today's Communication / Plan
-
Wean O2
Assessment/Plan
-
Assessment
ESRD
Hypertension
Paroxysmal atrial fibrillation
COPD
Bronchitis
Shortness of breath
Plan
HD Saturday, can try to challenge weight if she remains oxygen dependent
antibiotics for bronchitis continues
Prednisone continues, taper
-
-
Date of Service: January 30, 2025
CC / HPI / ROS
-
Chief Complaint:
ESRD
History of Present Illness:
tolerated HD yesterday
on steroids and O2 2lit
no fever
Review of Systems:
no cp
cough is present still
Labs
-
Labs:
WBC 12.7 10^3/uL (4.8-10.8) H 01/28/25 05:37
RBC 3.43 10^6/uL (4.20-5.40) L 01/28/25 05:37
Hgb 9.7 g/dL (12.0-16.0) L 01/30/25 06:26
Hct 28.1 % (37.0-47.0) L 01/30/25 06:26
Plt Count 205 10^3/uL (130-400) D 01/28/25 05:37
Sodium 134 mmol/L (135-145) L 01/30/25 06:26
Potassium 3.4 mmol/L (3.5-5.1) L 01/30/25 06:26
Chloride 98 mmol/L (98-107) 01/30/25 06:26
Carbon Dioxide 27 mmol/L (22-30) 01/30/25 06:26
BUN 34 mg/dl (7-17) H 01/28/25 05:37
Creatinine 2.5 mg/dL (0.6-1.0) H 01/28/25 05:37
eGFR 19.08 01/28/25 05:37
Glucose 127 mg/dl (70-99) H 01/28/25 05:37
Calcium 9.9 mg/dl (8.4-10.2) 01/28/25 05:37
Albumin 4.1 g/dl (3.5-5.0) 01/26/25 14:23
Physical Exam
-
Vital Signs:
Vital Signs
Temp Pulse Resp BP Pulse Ox
97.6 F 67 16 163/75 96
01/30/25 07:26 01/30/25 07:36 01/30/25 07:36 01/30/25 07:26 01/30/25 07:36
Cardiovascular:: Regular rate and rhythm
Respiratory:: Bilateral: Coarse
Lung Excursion:: Normal
Abdomen:: Nontender and Soft
Bowel Sounds:: Normal
Extremity Edema:: None: Bilateral:
[2025-01-30 11:46] LABS: Glucose - Point of Care 104 mg/dl (70-99)
[2025-01-30 16:53] LABS: Glucose - Point of Care 260 mg/dl (70-99)
[2025-01-30] MEDS: NOVOLOG FLEXPEN-LOW RESISTANCE 3 UNITS SC (17:35)
[2025-01-30 20:48] LABS: Glucose - Point of Care 134 mg/dl (70-99)
[2025-01-30] MEDS: XALATAN OPHTHALMIC SOLUTION 1 DROP BOTH EYES (21:34)
[2025-01-30] MEDS: SEROQUEL 25 MG PO (21:34)
[2025-01-31] MEDS: HEPARIN 5000 UNITS SC ×3 (00:54→17:29)
[2025-01-31 03:11] VITALS: BP 142/76
[2025-01-31] MEDS: SYNTHROID 88 MCG PO (06:23)
--- NOTE | 2025-01-31 07:18 | W.PN.HOSP.TC ---
Today's Communication/Plan
-
Tapering steroids. Discharge planning.
Assessment / Plan
Assessment / Plan
Physical exam:
General: Well Developed, Well Nourished and No Apparent Distress
HEENT: Normocephalic, Atraumatic and Moist Mucous Membranes
Respiratory: Scattered wheezes; Negative Rales or Rhonchi
Cardiac: Regular Rhythm and S1/S2
GI: Soft, Nontender and Nondistended
Musculoskeletal: No Clubbing, No Cyanosis and No Edema
Neuro: Awake, Alert and Oriented, no neurological deficits
Psych: Calm
A/P:
Acute COPD exacerbation:
On oral steroids, prednisone down to 30 mg p.o. daily and plan to do a quick taper from here on.
Add Mucinex
Bronchodilators, DuoNebs 4 times daily
Budesonide
Finished course of azithromycin today.
Seen chest x-ray no evidence of pneumonia
Discussed with brigette over the phone prior
PT OT eval recommending SNF and case management sent referrals to rehab with dialysis.
Plan to go to SNF once accepted
Toxic metabolic encephalopathy/delirium:
CT of the head unremarkable for acute pathology
Hold IV steroids
Stop Seroquel today
Neurology input appreciated.
Hypertension:
Continue metoprolol
End-stage renal disease on hemodialysis:
Hemodialysis per nephrology
Hyperlipidemia:
Continue atorvastatin
Hypothyroidism:
Continue levothyroxine 88 mcg p.o. daily
Anxiety:
Continue p.o. 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
Chronic back pain:
Tylenol as needed for pain
DVT prophylaxis:
heparin SQ
Code Status:
Full code
Anticipated Discharge: 24 - 48 hours
Subjective/Interval History
-
Date of Service: January 31, 2025
Patient doing better overall. Does complain of cough and phlegm not coming up. Less shortness of breath. Alert and oriented. Afebrile
Objective Data
-
Labs:
Laboratory Results
01/31/25
06:00
WBC Pending
Hgb Pending
Hct Pending
Plt Count Pending
Sodium Pending
Potassium Pending
Chloride Pending
Carbon Dioxide Pending
BUN Pending
Creatinine Pending
Glucose Pending
Calcium Pending
Vital Signs:
Vital Signs
Temp Pulse Resp BP Pulse Ox
97.8 F 89 17 142/76 94
01/31/25 03:11 01/31/25 03:11 01/31/25 03:11 01/31/25 03:11 01/31/25 03:11
I&O
01/30/25 01/31/25 02/01/25
06:59 06:59 06:59
Intake Total 720 / 720 800 / 800
Balance 720 / 720 800 / 800
[2025-01-31] MEDS: DUONEB 3 ML INH ×4 (07:28→19:41)
[2025-01-31] MEDS: PULMICORT 0.25 MG INH ×2 (07:29→19:41)
[2025-01-31 07:30] VITALS: BP 148/69
[2025-01-31 08:23] LABS: Glucose - Point of Care 100 mg/dl (70-99)
[2025-01-31 08:40] LABS: Hematocrit 30.4 % (37.0-47.0); Hemoglobin 10.3 g/dL (12.0-16.0); Mean Corp Hgb Conc. 33.9 g/dL (33.0-37.0); Mean Corpuscular Hgb 31.9 pg (27.0-31.0); Mean Corpuscular Volume 94.1 fL (81.0-99.0); Mean Platelet Volume 11.2 fL (7.4-10.4); Platelet Count 213 10^3/uL (130-400); Red Blood Cell Count 3.23 10^6/uL (4.20-5.40); Red Cell Dist. Width 13.3 % (11.5-14.5)
[2025-01-31] MEDS: NOVOLOG FLEXPEN-LOW RESISTANCE SC ×2 (09:08→12:35)
[2025-01-31] MEDS: DELTASONE 30 MG PO (09:09)
[2025-01-31] MEDS: ASPIR LOW (ENTERIC COATED) 81 MG PO (09:09)
[2025-01-31] MEDS: ZITHROMAX 500 MG PO (09:09)
[2025-01-31] MEDS: LIPITOR 20 MG PO (09:10)
[2025-01-31] MEDS: TOPROL XL 50 MG PO ×2 (09:10→20:39)
[2025-01-31 09:15] LABS: Blood Urea Nitrogen 58 mg/dl (7-17); Calcium 9.6 mg/dl (8.4-10.2); Carbon Dioxide 25 mmol/L (22-30); Chloride 102 mmol/L (98-107); Estimated Creatinine Clearance 13 ml/min; Glucose 92 mg/dl (70-99); Potassium 4.3 mmol/L (3.5-5.1); Sodium 136 mmol/L (135-145)
[2025-01-31] MEDS: ATIVAN 1 MG PO ×2 (09:16→20:39)
[2025-01-31 11:30] VITALS: BP 165/67
[2025-01-31 12:05] LABS: Glucose - Point of Care 110 mg/dl (70-99)
[2025-01-31] MEDS: MUCINEX 600 MG PO ×2 (12:41→20:39)
--- NOTE | 2025-01-31 12:49 | W.PN.NEPH.PH ---
Today's Communication / Plan
-
HD tomorrow
Assessment/Plan
-
Assessment
ESRD
Hypertension
Paroxysmal atrial fibrillation
COPD
Bronchitis
Shortness of breath
Plan
HD tomorrow, can try to challenge weight if she remains oxygen dependent
antibiotics for bronchitis continues
Prednisone continues, taper
Weaning supplemental oxygen
-
-
Date of Service: January 31, 2025
CC / HPI / ROS
-
Chief Complaint:
ESRD
History of Present Illness:
tolerated HD Saturday
on steroids and O2 1lit
no fever
Review of Systems:
no cp
cough is present still
Labs
-
Labs:
WBC 10.0 10^3/uL (4.8-10.8) 01/31/25 07:59
RBC 3.23 10^6/uL (4.20-5.40) L 01/31/25 07:59
Hgb 10.3 g/dL (12.0-16.0) L 01/31/25 07:59
Hct 30.4 % (37.0-47.0) L 01/31/25 07:59
Plt Count 213 10^3/uL (130-400) 01/31/25 07:59
Sodium 136 mmol/L (135-145) 01/31/25 07:59
Potassium 4.3 mmol/L (3.5-5.1) D 01/31/25 07:59
Chloride 102 mmol/L (98-107) 01/31/25 07:59
Carbon Dioxide 25 mmol/L (22-30) 01/31/25 07:59
BUN 58 mg/dl (7-17) H 01/31/25 07:59
Creatinine 2.7 mg/dL (0.6-1.0) H 01/31/25 07:59
eGFR 17.40 01/31/25 07:59
Glucose 92 mg/dl (70-99) 01/31/25 07:59
Calcium 9.6 mg/dl (8.4-10.2) 01/31/25 07:59
Albumin 4.1 g/dl (3.5-5.0) 01/26/25 14:23
Physical Exam
-
Vital Signs:
Vital Signs
Temp Pulse Resp BP Pulse Ox
97.8 F 70 20 165/67 95
01/31/25 11:30 01/31/25 11:30 01/31/25 11:30 01/31/25 11:30 01/31/25 11:30
Cardiovascular:: Regular rate and rhythm
Respiratory:: Bilateral: Coarse
Lung Excursion:: Normal
Abdomen:: Nontender and Soft
Bowel Sounds:: Normal
Extremity Edema:: None: Bilateral:
[2025-01-31 16:00] VITALS: BP 102/65
--- NOTE | 2025-01-31 16:43 | PTCARENOTE ---
patient medicated with PRN Ativan this am (see MAR), for c/o feeling anxious with good relief, reports less sob and trying to expectorate phlegm, tolerating diet, vss, will continue to monitor.
[2025-01-31 17:19] LABS: Glucose - Point of Care 230 mg/dl (70-99)
[2025-01-31] MEDS: NOVOLOG FLEXPEN-LOW RESISTANCE 2 UNITS SC (17:29)
[2025-01-31] MEDS: XALATAN OPHTHALMIC SOLUTION 1 DROP BOTH EYES (20:53)
[2025-01-31 21:41] LABS: Glucose - Point of Care 162 mg/dl (70-99)
[2025-01-31 23:34] VITALS: BP 150/60
[2025-02-01] MEDS: HEPARIN 5000 UNITS SC ×3 (00:29→17:28)
[2025-02-01 06:00] VITALS: BMI 25.9
[2025-02-01] MEDS: SYNTHROID 88 MCG PO (06:55)
[2025-02-01 07:45] VITALS: BP 201/77
[2025-02-01] MEDS: PULMICORT 0.25 MG INH ×2 (07:45→19:49)
[2025-02-01] MEDS: DUONEB 3 ML INH ×4 (07:45→19:49)
[2025-02-01 07:53] LABS: Glucose - Point of Care 88 mg/dl (70-99)
[2025-02-01] MEDS: HEPARIN 500 UNITS IV ×2 (07:55→08:55)
[2025-02-01 08:33] LABS: Hematocrit 29.6 % (37.0-47.0); Hemoglobin 10.2 g/dL (12.0-16.0)
[2025-02-01] MEDS: ROBITUSSIN 100 MG PO ×2 (08:33→15:39)
[2025-02-01] MEDS: NOVOLOG FLEXPEN-LOW RESISTANCE SC ×2 (08:35→12:44)
[2025-02-01] MEDS: ATIVAN 1 MG PO ×2 (08:48→20:26)
[2025-02-01 09:18] LABS: Carbon Dioxide 20 mmol/L (22-30); Chloride 104 mmol/L (98-107); Potassium 4.4 mmol/L (3.5-5.1); Sodium 135 mmol/L (135-145)
[2025-02-01] MEDS: DELTASONE 30 MG PO (11:52)
[2025-02-01] MEDS: TOPROL XL 50 MG PO ×2 (11:53→20:25)
[2025-02-01] MEDS: LIPITOR 20 MG PO (11:53)
[2025-02-01] MEDS: MUCINEX 600 MG PO ×2 (11:53→20:24)
[2025-02-01] MEDS: ASPIR LOW (ENTERIC COATED) 81 MG PO (11:54)
[2025-02-01 12:06] LABS: Glucose - Point of Care 91 mg/dl (70-99)
--- NOTE | 2025-02-01 12:11 | W.PN.NEPH.HD ---
Progress Note - Hemodialysis
-
Date of Service: February 01, 2025
Duration: 30 minutes and 3 hours
Potassium Bath: 4
Calcium Bath: 2.5
Opti-Dialyzer: 160
Ultrafiltration: Other (1kg)
Blood Flow: 400
Dialysate Flow: 600
Heparin: 500x2
EPO: 0
--- NOTE | 2025-02-01 13:50 | W.PN.HOSP.TC ---
Today's Communication/Plan
-
Cleared for discharge
Assessment / Plan
Assessment / Plan
Impression:
79 years old female history of end-stage renal disease on hemodialysis, COPD, hypertension, hypothyroidism, presented to the hospital with COPD exacerbation.� Started on DuoNebs and steroids tapering.� She had some delirium and improving.� Plan to
go to SNF when bed available.
Assessment/plan:
Acute COPD exacerbation:
On oral steroids, prednisone down to 30 mg p.o. daily and plan to do a quick taper from here on.
Add Mucinex
Bronchodilators, DuoNebs 4 times daily
Budesonide
Finished course of azithromycin today.
Seen chest x-ray no evidence of pneumonia
PT OT eval recommending SNF and case management sent referrals to rehab with dialysis.
Plan to go to SNF once accepted
Acute Toxic metabolic encephalopathy/delirium:
CT of the head unremarkable for acute pathology
IV steroids switched to oral.
Seen by neurology, no further workup
Hypertension:
Continue metoprolol
End-stage renal disease on hemodialysis:
Hemodialysis per nephrology
Hyperlipidemia:
Continue atorvastatin
Hypothyroidism:
Continue levothyroxine 88 mcg p.o. daily
Anxiety:
Continue p.o. 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
Chronic back pain:
Tylenol as needed for pain
DVT prophylaxis:
heparin SQ
Code Status:
Full code
Total time spent on today's encounter was 55 minutes which included time spent in counseling the patient/family regarding diagnosis and treatment plan as listed above, goals of care, and symptom management. Case was discussed with nursing staff,
specialists, and care coordinators/case management. All labs and imaging personally reviewed by me. Remainder the time spent in detailed review of previous records, lab data, imaging, and other medical provider documentation.
Anticipated Discharge: Today
Subjective/Interval History
-
Date of Service: February 01, 2025
Patient seen and examined at bedside, patient seen during dialysis.
Denies any chest pain or shortness of breath, no abdominal pain, no nausea, no vomiting, no diarrhea or constipation.
Medically clear for discharge.
Objective Data
-
Labs:
Laboratory Results
02/01/25
07:45
Hgb 10.2 L
Hct 29.6 L
Sodium 135
Potassium 4.4
Chloride 104
Carbon Dioxide 20 L
Vital Signs:
Vital Signs
Temp Pulse Resp BP Pulse Ox
97.4 F 63 16 149/64 98
02/01/25 07:45 02/01/25 11:53 02/01/25 11:19 02/01/25 11:53 02/01/25 11:19
I&O
01/31/25 02/01/25 02/02/25
06:59 06:59 06:59
Intake Total 800 / 800 1090 / 1090
Balance 800 / 800 1090 / 1090
Physical Exam
-
General: Well Developed, Well Nourished, No Apparent Distress and Comfortable
HEENT: Normocephalic, Atraumatic, Moist Mucous Membranes, No Ptosis, PERRLA and Nose Appears Normal
Respiratory: Clear to Auscultation and Non Labored Respirations
Cardiac: Regular Rhythm and S1/S2
Breast: Deferred by me
GI: Soft, Nontender, Nondistended and Normal Bowel Sounds
Genito-urinary: No Costovertebral Tender
Musculoskeletal: No Clubbing, No Cyanosis and No Edema
Skin: Warm
Neuro: Awake, Alert, Oriented, AO x 3 and No Motor Deficits
Psych: Calm
Data Reviewed
-
Diagnostic Radiology: Image personally visualized and interpreted and Report Reviewed by me
CT Scan: Image personally visualized and interpreted and Report Reviewed by me
Ultrasound: Image personally visualized and interpreted and Report Reviewed by me
MRI: Image personally visualized and interpreted and Report Reviewed by me
Medical Tests (Nuc Med, Echo etc): Image personally visualized and interpreted and Report Reviewed by me
Labs: Labs Reviewed by me
Old Records: Reviewed
[2025-02-01 15:30] VITALS: BP 145/60
[2025-02-01 16:58] LABS: Glucose - Point of Care 167 mg/dl (70-99)
[2025-02-01] MEDS: NOVOLOG FLEXPEN-LOW RESISTANCE 1 UNITS SC (17:29)
[2025-02-01] MEDS: XALATAN OPHTHALMIC SOLUTION 1 DROP BOTH EYES (20:26)
[2025-02-01] MEDS: FLUSH (NSS) 1 FLUSH IV (20:27)
[2025-02-01 21:47] LABS: Glucose - Point of Care 152 mg/dl (70-99)
[2025-02-01 22:56] VITALS: BP 118/58
[2025-02-02] MEDS: HEPARIN 5000 UNITS SC ×4 (00:11→23:01)
[2025-02-02] MEDS: SYNTHROID 88 MCG PO (05:34)
[2025-02-02 05:37] VITALS: BMI 26.0
[2025-02-02 05:53] LABS: Hematocrit 30.5 % (37.0-47.0); Hemoglobin 10.4 g/dL (12.0-16.0); Mean Corp Hgb Conc. 34.1 g/dL (33.0-37.0); Mean Corpuscular Hgb 32.1 pg (27.0-31.0); Mean Corpuscular Volume 94.1 fL (81.0-99.0); Mean Platelet Volume 10.8 fL (7.4-10.4); Platelet Count 234 10^3/uL (130-400); Red Blood Cell Count 3.24 10^6/uL (4.20-5.40); Red Cell Dist. Width 13.5 % (11.5-14.5); White Blood Cell Count 11.9 10^3/uL (4.8-10.8)
[2025-02-02 06:15] LABS: Blood Urea Nitrogen 45 mg/dl (7-17); Calcium 9.3 mg/dl (8.4-10.2); Carbon Dioxide 24 mmol/L (22-30); Chloride 101 mmol/L (98-107); Estimated Creatinine Clearance 16 ml/min; Glucose 120 mg/dl (70-99); Potassium 4.6 mmol/L (3.5-5.1); Sodium 136 mmol/L (135-145); eGFR 22.25
[2025-02-02] MEDS: DUONEB 3 ML INH ×4 (07:05→19:53)
[2025-02-02] MEDS: PULMICORT 0.25 MG INH ×2 (07:05→19:53)
[2025-02-02 07:42] VITALS: BP 133/61
[2025-02-02 07:53] LABS: Glucose - Point of Care 89 mg/dl (70-99)
[2025-02-02] MEDS: NOVOLOG FLEXPEN-LOW RESISTANCE SC ×2 (08:16→12:46)
[2025-02-02] MEDS: ASPIR LOW (ENTERIC COATED) 81 MG PO (08:17)
[2025-02-02] MEDS: DELTASONE 20 MG PO (08:17)
[2025-02-02] MEDS: MUCINEX 600 MG PO ×2 (08:17→20:45)
[2025-02-02] MEDS: TOPROL XL 50 MG PO ×2 (08:18→20:45)
[2025-02-02] MEDS: LIPITOR 20 MG PO (08:18)
[2025-02-02] MEDS: ATIVAN 1 MG PO ×2 (08:24→20:45)
[2025-02-02 10:16] VITALS: BP 125/80; PULSE 81; O2SAT 94
[2025-02-02 10:35] VITALS: BP 158/63; BP 92/63; PULSE 65; O2SAT 97
[2025-02-02 11:45] LABS: Glucose - Point of Care 95 mg/dl (70-99)
--- NOTE | 2025-02-02 12:15 | CM ---
Anastasia is accepted and cleared for discharge to [facility] today.
CM called pt's insurance to request authorization; Pending authorization #[id number] provided by Javier at [facility].
Records faxed for review to [phone].
Plan: CM to follow to coordinate transfer to SNF once final authorization has been approved by [facility].
[facility] Report:[phone]
[facility]
--- NOTE | 2025-02-02 13:17 | W.PN.HOSP.TC ---
Today's Communication/Plan
-
Discharge to SNF today
Assessment / Plan
Assessment / Plan
Impression:
79 years old female history of end-stage renal disease on hemodialysis, COPD, hypertension, hypothyroidism, presented to the hospital with COPD exacerbation.� Started on DuoNebs and steroids tapering.� She had some delirium and improving.� Physical
therapy recommending rehab.
Social service consulted, patient to be discharged to SNF
Assessment/plan:
Acute COPD exacerbation:
On oral steroids, prednisone down to 30 mg p.o. daily and plan to do a quick taper from here on.
Add Mucinex
Bronchodilators, DuoNebs 4 times daily
Budesonide
Finished course of azithromycin today.
Seen chest x-ray no evidence of pneumonia
PT OT eval recommending SNF and case management sent referrals to rehab with dialysis.
Plan to go to SNF once accepted-pending insurance authorization.
Acute Toxic metabolic encephalopathy/delirium:
CT of the head unremarkable for acute pathology
IV steroids switched to oral.
Seen by neurology, no further workup
Hypertension:
Continue metoprolol
End-stage renal disease on hemodialysis:
Hemodialysis per nephrology
Hyperlipidemia:
Continue atorvastatin
Hypothyroidism:
Continue levothyroxine 88 mcg p.o. daily
Anxiety:
Continue p.o. 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
Chronic back pain:
Tylenol as needed for pain
DVT prophylaxis:
heparin SQ
Code Status:
Full code
Total time spent on today's encounter was 55 minutes which included time spent in counseling the patient/family regarding diagnosis and treatment plan as listed above, goals of care, and symptom management. Case was discussed with nursing staff,
specialists, and care coordinators/case management. All labs and imaging personally reviewed by me. Remainder the time spent in detailed review of previous records, lab data, imaging, and other medical provider documentation.
Anticipated Discharge: Today
Subjective/Interval History
-
Date of Service: February 02, 2025
Patient seen and examined at bedside, denies any chest pain or shortness of breath, no abdominal pain, no nausea, no vomiting, no diarrhea or constipation.
Pending insurance authorization.
Objective Data
-
Labs:
Laboratory Results
02/02/25
05:21
WBC 11.9 H
Hgb 10.4 L
Hct 30.5 L
Plt Count 234
Sodium 136
Potassium 4.6
Chloride 101
Carbon Dioxide 24
BUN 45 H
Creatinine 2.2 H
Glucose 120 H
Calcium 9.3
Vital Signs:
Vital Signs
Temp Pulse Resp BP Pulse Ox
98.1 F 68 16 133/61 97
02/02/25 07:42 02/02/25 11:12 02/02/25 11:12 02/02/25 08:18 02/02/25 08:15
I&O
02/01/25 02/02/25 02/03/25
06:59 06:59 06:59
Intake Total 1090 / 1090 680 / 680
Balance 1090 / 1090 680 / 680
Physical Exam
-
General: Well Developed, Well Nourished, No Apparent Distress and Comfortable
HEENT: Normocephalic, Atraumatic, Moist Mucous Membranes, No Ptosis, PERRLA and Nose Appears Normal
Respiratory: Clear to Auscultation and Non Labored Respirations
Cardiac: Regular Rhythm and S1/S2
Breast: Deferred by me
GI: Soft, Nontender, Nondistended and Normal Bowel Sounds
Genito-urinary: No Costovertebral Tender
Musculoskeletal: No Clubbing, No Cyanosis and No Edema
Skin: Warm
Neuro: Awake, Alert, Oriented, AO x 3 and No Motor Deficits
Psych: Calm
Data Reviewed
-
Diagnostic Radiology: Image personally visualized and interpreted and Report Reviewed by me
CT Scan: Image personally visualized and interpreted and Report Reviewed by me
Ultrasound: Image personally visualized and interpreted and Report Reviewed by me
MRI: Image personally visualized and interpreted and Report Reviewed by me
Medical Tests (Nuc Med, Echo etc): Image personally visualized and interpreted and Report Reviewed by me
Labs: Labs Reviewed by me
Old Records: Reviewed
[2025-02-02 14:14] VITALS: BMI 26.0
--- NOTE | 2025-02-02 14:58 | W.PN.NEPH.PH ---
Today's Communication / Plan
-
Dialysis tomorrow if patient still here
Assessment/Plan
-
Assessment
ESRD
Hypertension
Paroxysmal atrial fibrillation
COPD
Bronchitis
Shortness of breath
Plan
HD tomorrow
antibiotics for bronchitis continues
Prednisone continues, taper
-
-
Date of Service: February 02, 2025
CC / HPI / ROS
-
Chief Complaint:
ESRD
History of Present Illness:
tolerated HD Saturday
on steroids and O2 1lit
no fever
Review of Systems:
no cp
cough is present still
Labs
-
Labs:
WBC 11.9 10^3/uL (4.8-10.8) H 02/02/25 05:21
RBC 3.24 10^6/uL (4.20-5.40) L 02/02/25 05:21
Hgb 10.4 g/dL (12.0-16.0) L 02/02/25 05:21
Hct 30.5 % (37.0-47.0) L 02/02/25 05:21
Plt Count 234 10^3/uL (130-400) 02/02/25 05:21
Sodium 136 mmol/L (135-145) 02/02/25 05:21
Potassium 4.6 mmol/L (3.5-5.1) 02/02/25 05:21
Chloride 101 mmol/L (98-107) 02/02/25 05:21
Carbon Dioxide 24 mmol/L (22-30) 02/02/25 05:21
BUN 45 mg/dl (7-17) H 02/02/25 05:21
Creatinine 2.2 mg/dL (0.6-1.0) H 02/02/25 05:21
eGFR 22.25 02/02/25 05:21
Glucose 120 mg/dl (70-99) H 02/02/25 05:21
Calcium 9.3 mg/dl (8.4-10.2) 02/02/25 05:21
Albumin 4.1 g/dl (3.5-5.0) 01/26/25 14:23
Physical Exam
-
Vital Signs:
Vital Signs
Temp Pulse Resp BP Pulse Ox
98.1 F 68 16 133/61 97
02/02/25 07:42 02/02/25 11:12 02/02/25 11:12 02/02/25 08:18 02/02/25 08:15
Cardiovascular:: Regular rate and rhythm
Respiratory:: Bilateral: CTA
Lung Excursion:: Normal
Abdomen:: Nontender and Soft
Bowel Sounds:: Normal
Extremity Edema:: None: Bilateral:
[2025-02-02 15:19] VITALS: BP 136/63
--- NOTE | 2025-02-02 16:01 | CM ---
Call received from [facility]; Clarice Calixto is not in Network. [facility] is going to review the situation with her team, as pt has an HMO policy, so unclear if they will be able to make an exception due to need for onsite dialysis.
CM to follow up in AM.
[2025-02-02 16:22] LABS: Glucose - Point of Care 184 mg/dl (70-99)
[2025-02-02] MEDS: NOVOLOG FLEXPEN-LOW RESISTANCE 1 UNITS SC (16:34)
[2025-02-02 21:07] LABS: Glucose - Point of Care 133 mg/dl (70-99)
[2025-02-02 23:00] VITALS: BP 155/60
[2025-02-02] MEDS: XALATAN OPHTHALMIC SOLUTION 1 DROP BOTH EYES (23:02)
[2025-02-03 06:00] VITALS: BMI 26.3
[2025-02-03 06:21] LABS: Hematocrit 30.3 % (37.0-47.0); Hemoglobin 10.2 g/dL (12.0-16.0); Mean Corp Hgb Conc. 33.7 g/dL (33.0-37.0); Mean Corpuscular Hgb 31.8 pg (27.0-31.0); Mean Corpuscular Volume 94.4 fL (81.0-99.0); Mean Platelet Volume 10.8 fL (7.4-10.4); Platelet Count 224 10^3/uL (130-400); Red Blood Cell Count 3.21 10^6/uL (4.20-5.40); Red Cell Dist. Width 13.6 % (11.5-14.5); White Blood Cell Count 10.5 10^3/uL (4.8-10.8)
[2025-02-03] MEDS: SYNTHROID 88 MCG PO (06:21)
[2025-02-03 06:40] LABS: Blood Urea Nitrogen 66 mg/dl (7-17); Calcium 9.2 mg/dl (8.4-10.2); Carbon Dioxide 23 mmol/L (22-30); Chloride 102 mmol/L (98-107); Estimated Creatinine Clearance 12 ml/min; Glucose 101 mg/dl (70-99); Potassium 4.3 mmol/L (3.5-5.1); Sodium 134 mmol/L (135-145); eGFR 15.97
[2025-02-03 07:05] VITALS: BP 169/66
[2025-02-03] MEDS: PULMICORT 0.25 MG INH ×2 (07:05→20:50)
[2025-02-03] MEDS: DUONEB 3 ML INH ×4 (07:05→20:50)
[2025-02-03 07:54] LABS: Glucose - Point of Care 79 mg/dl (70-99)
[2025-02-03] MEDS: LIPITOR 20 MG PO (08:32)
[2025-02-03] MEDS: ASPIR LOW (ENTERIC COATED) 81 MG PO (08:32)
[2025-02-03] MEDS: HEPARIN 5000 UNITS SC ×3 (08:32→23:49)
[2025-02-03] MEDS: MUCINEX 600 MG PO ×2 (08:32→20:44)
[2025-02-03] MEDS: DELTASONE 20 MG PO (08:32)
[2025-02-03] MEDS: ATIVAN 1 MG PO ×2 (09:31→20:44)
[2025-02-03] MEDS: NOVOLOG FLEXPEN-LOW RESISTANCE SC ×2 (10:12→13:20)
[2025-02-03] MEDS: TOPROL XL PO (10:19)
--- NOTE | 2025-02-03 10:33 | W.PN.HOSP.TC ---
Today's Communication/Plan
-
Pending placement
Assessment / Plan
Assessment / Plan
Impression:
79 years old female history of end-stage renal disease on hemodialysis, COPD, hypertension, hypothyroidism, presented to the hospital with COPD exacerbation.� Started on DuoNebs and steroids tapering.� She had some delirium and improving.� Physical
therapy recommending rehab.
Social service consulted, patient to be discharged to SNF
Assessment/plan:
Acute COPD exacerbation:
On oral steroids, prednisone down to 30 mg p.o. daily and plan to do a quick taper from here on.
Add Mucinex
Bronchodilators, DuoNebs 4 times daily
Budesonide
Finished course of azithromycin today.
Seen chest x-ray no evidence of pneumonia
PT OT eval recommending SNF and case management sent referrals to rehab with dialysis.
Plan to go to SNF once accepted-pending insurance authorization.
Acute Toxic metabolic encephalopathy/delirium:
CT of the head unremarkable for acute pathology
IV steroids switched to oral.
Seen by neurology, no further workup
Hypertension:
Continue metoprolol
End-stage renal disease on hemodialysis:
Hemodialysis per nephrology
Hyperlipidemia:
Continue atorvastatin
Hypothyroidism:
Continue levothyroxine 88 mcg p.o. daily
Anxiety:
Continue p.o. 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
Chronic back pain:
Tylenol as needed for pain
DVT prophylaxis:
heparin SQ
Code Status:
Full code
Total time spent on today's encounter was 55 minutes which included time spent in counseling the patient/family regarding diagnosis and treatment plan as listed above, goals of care, and symptom management. Case was discussed with nursing staff,
specialists, and care coordinators/case management. All labs and imaging personally reviewed by me. Remainder the time spent in detailed review of previous records, lab data, imaging, and other medical provider documentation.
Anticipated Discharge: Today
Subjective/Interval History
-
Date of Service: February 03, 2025
Patient seen and examined at bedside, denies any chest pain or shortness of breath, no abdominal pain, no nausea, no vomiting, no diarrhea or constipation.
Still pending please
Objective Data
-
Labs:
Laboratory Results
02/03/25
05:13
WBC 10.5
Hgb 10.2 L
Hct 30.3 L
Plt Count 224
Sodium 134 L
Potassium 4.3
Chloride 102
Carbon Dioxide 23
BUN 66 H
Creatinine 2.9 H
Glucose 101 H
Calcium 9.2
Vital Signs:
Vital Signs
Temp Pulse Resp BP Pulse Ox
97.5 F 70 16 169/66 97
02/03/25 07:05 02/03/25 07:06 02/03/25 07:06 02/03/25 07:05 02/03/25 07:05
I&O
02/02/25 02/03/25 02/04/25
06:59 06:59 06:59
Intake Total 680 / 680 960 / 960
Balance 680 / 680 960 / 960
Physical Exam
-
General: Well Developed, Well Nourished, No Apparent Distress and Comfortable
HEENT: Normocephalic, Atraumatic, Moist Mucous Membranes, No Ptosis, PERRLA and Nose Appears Normal
Respiratory: Clear to Auscultation and Non Labored Respirations
Cardiac: Regular Rhythm and S1/S2
Breast: Deferred by me
GI: Soft, Nontender, Nondistended and Normal Bowel Sounds
Genito-urinary: No Costovertebral Tender
Musculoskeletal: No Clubbing, No Cyanosis and No Edema
Skin: Warm
Neuro: Awake, Alert, Oriented, AO x 3 and No Motor Deficits
Psych: Calm
Data Reviewed
-
Diagnostic Radiology: Image personally visualized and interpreted and Report Reviewed by me
CT Scan: Image personally visualized and interpreted and Report Reviewed by me
Ultrasound: Image personally visualized and interpreted and Report Reviewed by me
MRI: Image personally visualized and interpreted and Report Reviewed by me
Medical Tests (Nuc Med, Echo etc): Image personally visualized and interpreted and Report Reviewed by me
Labs: Labs Reviewed by me
Old Records: Reviewed
[2025-02-03] MEDS: ROBITUSSIN 100 MG PO (11:04)
[2025-02-03 12:01] LABS: Glucose - Point of Care 88 mg/dl (70-99)
[2025-02-03] MEDS: MANNITOL 25% 12.5 GRAMS IV (14:15)
[2025-02-03] MEDS: RETACRIT 4000 UNITS IV (14:17)
--- NOTE | 2025-02-03 14:46 | W.PN.NEPH.HD ---
Assessment
-
Patient seen on dialysis tolerating treatment and ultrafiltration
Progress Note - Hemodialysis
-
Date of Service: February 03, 2025
Duration: 30 minutes and 3 hours
Potassium Bath: 4
Calcium Bath: 2.5
Opti-Dialyzer: 160
Ultrafiltration: Other (1kg)
Blood Flow: 400
Dialysate Flow: 600
Heparin: 500x2
EPO: Yes
--- NOTE | 2025-02-03 14:49 | CM ---
CM continues to follow for transfer to [facility] for SNF and dialysis. I spoke with Zane and Sharlene; provided appropriate facilities that are in network with [facility], but declined admission due to no beds ([facility], and [facility]). Zane will escalate the case to the [employer] for final determination by the end of today.
Plan: continues to follow for transfer to SNF with dialysis. [facility] has offered a bed and willing to admit today pending final determination from [facility].
[facility] Report:[phone]
[facility]
[2025-02-03 15:05] VITALS: BP 128/59
[2025-02-03 17:05] LABS: Glucose - Point of Care 150 mg/dl (70-99)
--- NOTE | 2025-02-03 17:25 | CM ---
[employer] Auth requested earlier this week. CM called to discuss case several times this week. [facility] is out of network with pt's plan. CM finally received approval late this afternoon for pt to go to [facility]. WILL NEED TO SET UP
TRANSPORT IN AM.
[2025-02-03] MEDS: NOVOLOG FLEXPEN-LOW RESISTANCE 1 UNITS SC (18:18)
[2025-02-03] MEDS: TOPROL XL 50 MG PO (20:44)
[2025-02-03] MEDS: XALATAN OPHTHALMIC SOLUTION 1 DROP BOTH EYES (21:23)
[2025-02-03 21:41] LABS: Glucose - Point of Care 181 mg/dl (70-99)
[2025-02-03 23:00] VITALS: BP 128/56
[2025-02-04 06:00] VITALS: BMI 25.7
[2025-02-04] MEDS: SYNTHROID 88 MCG PO (06:27)
[2025-02-04 07:05] VITALS: BP 127/65
[2025-02-04] MEDS: DUONEB 3 ML INH ×2 (07:23→11:26)
[2025-02-04] MEDS: PULMICORT 0.25 MG INH (07:24)
[2025-02-04 07:50] LABS: Glucose - Point of Care 95 mg/dl (70-99)
[2025-02-04] MEDS: ATIVAN 1 MG PO (08:37)
[2025-02-04] MEDS: NOVOLOG FLEXPEN-LOW RESISTANCE SC (08:37)
[2025-02-04] MEDS: DELTASONE 20 MG PO (08:38)
[2025-02-04] MEDS: LIPITOR 20 MG PO (08:38)
[2025-02-04] MEDS: HEPARIN 5000 UNITS SC (08:38)
[2025-02-04] MEDS: ASPIR LOW (ENTERIC COATED) 81 MG PO (08:38)
[2025-02-04] MEDS: MUCINEX 600 MG PO (08:38)
[2025-02-04] MEDS: TOPROL XL 50 MG PO (08:48)
--- NOTE | 2025-02-04 09:07 | CM ---
[facility] approval for skilled rehab
auth# [id number]
Start date 02/03/25, LCD/NRD 02/05/25
[facility]arice [facility] Report:[phone]
[facility] Cal[facility]
--- NOTE | 2025-02-04 09:34 | CM ---
CM called to patient grandson and confirmed transfer, picker packer at 1pm. Patient grandthom provided email [email or web address]. Patient for transfer to SNF today, facility liaison aware of transfer time. CM will continue to follow for discharge
planning needs.
Plan; SNF
[facility] Report:[phone]
[facility]
--- NOTE | 2025-02-04 10:10 | W.PN.HOSP.TC ---
Today's Communication/Plan
-
Discharge to SNF today
Assessment / Plan
Assessment / Plan
Impression:
79 years old female history of end-stage renal disease on hemodialysis, COPD, hypertension, hypothyroidism, presented to the hospital with COPD exacerbation.� Started on DuoNebs and steroids tapering.� She had some delirium and improving.� Physical
therapy recommending rehab.
Social service consulted, patient to be discharged to SNF.
Will be discharged on short prednisone therapy tapering.
Assessment/plan:
Acute COPD exacerbation:
On oral steroids, prednisone down to 30 mg p.o. daily and plan to do a quick taper from here on.
Add Mucinex
Bronchodilators, DuoNebs 4 times daily
Budesonide
Finished course of azithromycin today.
Seen chest x-ray no evidence of pneumonia
PT OT eval recommending SNF and case management sent referrals to rehab with dialysis.
Plan to go to SNF once accepted-pending insurance authorization.
Acute Toxic metabolic encephalopathy/delirium:
CT of the head unremarkable for acute pathology
IV steroids switched to oral.
Seen by neurology, no further workup
Hypertension:
Continue metoprolol
End-stage renal disease on hemodialysis:
Hemodialysis per nephrology
Hyperlipidemia:
Continue atorvastatin
Hypothyroidism:
Continue levothyroxine 88 mcg p.o. daily
Anxiety:
Continue p.o. 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
Chronic back pain:
Tylenol as needed for pain
DVT prophylaxis:
heparin SQ
Code Status:
Full code
Total time spent on today's encounter was 55 minutes which included time spent in counseling the patient/family regarding diagnosis and treatment plan as listed above, goals of care, and symptom management. Case was discussed with nursing staff,
specialists, and care coordinators/case management. All labs and imaging personally reviewed by me. Remainder the time spent in detailed review of previous records, lab data, imaging, and other medical provider documentation.
Anticipated Discharge: Today
Subjective/Interval History
-
Date of Service: February 04, 2025
Patient seen and examined at bedside, denies any chest pain or shortness of breath, no abdominal pain, no nausea, no vomiting, no diarrhea or constipation.
Objective Data
-
Vital Signs:
Vital Signs
Temp Pulse Resp BP Pulse Ox
98.0 F 61 14 127/65 96
02/04/25 07:05 02/04/25 08:48 02/04/25 07:33 02/04/25 08:48 02/04/25 07:33
I&O
02/03/25 02/04/25 02/05/25
06:59 06:59 06:59
Intake Total 960 / 960 840 / 840
Balance 960 / 960 840 / 840
Physical Exam
-
General: Well Developed, Well Nourished, No Apparent Distress and Comfortable
HEENT: Normocephalic, Atraumatic, Moist Mucous Membranes, No Ptosis, PERRLA and Nose Appears Normal
Respiratory: Clear to Auscultation and Non Labored Respirations
Cardiac: Regular Rhythm and S1/S2
Breast: Deferred by me
GI: Soft, Nontender, Nondistended and Normal Bowel Sounds
Genito-urinary: No Costovertebral Tender
Musculoskeletal: No Clubbing, No Cyanosis and No Edema
Skin: Warm
Neuro: Awake, Alert, Oriented, AO x 3 and No Motor Deficits
Psych: Calm
Data Reviewed
-
Diagnostic Radiology: Image personally visualized and interpreted and Report Reviewed by me
CT Scan: Image personally visualized and interpreted and Report Reviewed by me
Ultrasound: Image personally visualized and interpreted and Report Reviewed by me
MRI: Image personally visualized and interpreted and Report Reviewed by me
Medical Tests (Nuc Med, Echo etc): Image personally visualized and interpreted and Report Reviewed by me
Labs: Labs Reviewed by me
Old Records: Reviewed
--- NOTE | 2025-02-04 10:11 | W.DCSUMMARY ---
Discharge Summary
Discharge Data
Date of Admission: 01/26/25
Date of Discharge: 02/04/25
-
Pending Results: No
Hospital Course
Hospital course
79 years old female history of end-stage renal disease on hemodialysis, COPD, hypertension, hypothyroidism, presented to the hospital with COPD exacerbation.� Started on DuoNebs and steroids tapering.� She had some delirium and improving.� Physical
therapy recommending rehab.
Social service consulted, patient to be discharged to SNF.
Will be discharged on short prednisone therapy tapering.
During hospitalization patient was treated from the [facility]
Acute COPD exacerbation:
On oral steroids, prednisone down to 30 mg p.o. daily and plan to do a quick taper from here on.
Add Mucinex
Bronchodilators, DuoNebs 4 times daily
Budesonide
Finished course of azithromycin today.
Seen chest x-ray no evidence of pneumonia
PT OT eval recommending SNF and case management sent referrals to rehab with dialysis.
Plan to go to SNF once accepted-pending insurance authorization.
Acute Toxic metabolic encephalopathy/delirium:
CT of the head unremarkable for acute pathology
IV steroids switched to oral.
Seen by neurology, no further workup
Hypertension:
Continue metoprolol
End-stage renal disease on hemodialysis:
Hemodialysis per nephrology
Hyperlipidemia:
Continue atorvastatin
Hypothyroidism:
Continue levothyroxine 88 mcg p.o. daily
Anxiety:
Continue p.o. 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
Chronic back pain:
Tylenol as needed for pain
DVT prophylaxis:
heparin SQ
Code Status:
Full code
Total time spent on today's encounter was 40 minutes which included time spent in counseling the patient/family regarding diagnosis and treatment plan as listed above, goals of care, and symptom management. Case was discussed with nursing staff,
specialists, and care coordinators/case management. All labs and imaging personally reviewed by me. Remainder the time spent in detailed review of previous records, lab data, imaging, and other medical provider documentation.
Anticipated Discharge: Today
Discharge Plan
-
Patient Disposition: Senior Living/SNF
Discharge Diagnosis/Procedures: COPD exacerbation-
End-stage renal disease
Diet: 2 Gram Sodium
Activity: With assistance and As tolerated
Other Services: PT and OT
Referrals:
Delvis Vieira DO [Family Provider] -
John Pacheco MD [Active] -
Avni Gomez MD [Active] -
Prescriptions:
New
prednisone 20 mg Tablet
10 mg PO DIRECTED Qty: 0 0RF
Rx Instructions:
Take 20 mg for 3 days and then 10 mg for 3 days then stop
acetaminophen 325 mg Tablet
650 mg PO Q6HPRN PRN (Reason: mild pain/ fever>100.5F) Qty: 0 0RF
ipratropium-albuterol 0.5 mg-3 mg(2.5 mg base)/3 mL Solution For Nebulization
3 ml inhalation R QID Qty: 0 0RF
sennosides-docusate sodium 8.6-50 mg Tablet
1 tab PO BIDPRN PRN (Reason: constipation) Qty: 0 0RF
guaifenesin 100 mg/5 mL Liquid
100 mg PO Q4HPRN PRN (Reason: cough) Qty: 0 0RF
budesonide 0.25 mg/2 mL Suspension For Nebulization
0.25 mg inhalation R BID Qty: 0 0RF
guaifenesin 600 mg Tablet Extended Release 12hr
600 mg PO Q12 Qty: 0 0RF
Continued
aspirin 81 MG tablet,delayed release (DR/EC)
81 mg PO DAILY
latanoprost 1 DROP drops
1 drp BOTH EYES HS
atorvastatin 20 MG tablet
20 mg PO DAILY
lorazepam 1 MG tablet
1 mg PO BIDPRN PRN (Reason: anxiety)
levothyroxine 88 MCG tablet
88 mcg PO DAILY
metoprolol succinate [Toprol XL] 50 mg Tablet Extended Release 24 Hr
50 mg PO BID
Brainstrong Memory Support 120 mg- 110 mg Tablet
1 tab PO DAILY
Discontinued
ibuprofen [Advil] 200 mg Tablet
400 mg PO Q6HPRN PRN (Reason: mild pain)
Discharge Orders:
Discharge Patient (As Directed); Ordered 02/01/25
Ordered By: Marilyn Merritt
Discharge Date and Time
Print Language: [place]AST [place]
--- NOTE | 2025-02-04 11:33 | W.PN.NEPH.PH ---
Today's Communication / Plan
-
Dialysis tomorrow outpatient if discharge
Assessment/Plan
-
Assessment
ESRD Saturday
Hypertension
Paroxysmal atrial fibrillation
COPD
Bronchitis
Shortness of breath
Plan
Status post prednisone and antibiotic
Dialysis tomorrow if patient remains in the hospital
Okay for discharge from renal standpoint
-
-
Date of Service: February 04, 2025
CC / HPI / ROS
-
Chief Complaint:
ESRD
History of Present Illness:
Presents with COPD exacerbation
Review of Systems:
no cp
No shortness of breath
Labs
-
Labs:
WBC 10.5 10^3/uL (4.8-10.8) 02/03/25 05:13
RBC 3.21 10^6/uL (4.20-5.40) L 02/03/25 05:13
Hgb 10.2 g/dL (12.0-16.0) L 02/03/25 05:13
Hct 30.3 % (37.0-47.0) L 02/03/25 05:13
Plt Count 224 10^3/uL (130-400) 02/03/25 05:13
Sodium 134 mmol/L (135-145) L 02/03/25 05:13
Potassium 4.3 mmol/L (3.5-5.1) 02/03/25 05:13
Chloride 102 mmol/L (98-107) 02/03/25 05:13
Carbon Dioxide 23 mmol/L (22-30) 02/03/25 05:13
BUN 66 mg/dl (7-17) H 02/03/25 05:13
Creatinine 2.9 mg/dL (0.6-1.0) H 02/03/25 05:13
eGFR 15.97 02/03/25 05:13
Glucose 101 mg/dl (70-99) H 02/03/25 05:13
Calcium 9.2 mg/dl (8.4-10.2) 02/03/25 05:13
Albumin 4.1 g/dl (3.5-5.0) 01/26/25 14:23
Physical Exam
-
Vital Signs:
Vital Signs
Temp Pulse Resp BP Pulse Ox
98.0 F 66 16 127/65 95
02/04/25 07:05 02/04/25 11:30 02/04/25 11:30 02/04/25 08:48 02/04/25 11:30
Cardiovascular:: Regular rate and rhythm
Respiratory:: Bilateral: CTA
Lung Excursion:: Normal
Abdomen:: Nontender and Soft
Bowel Sounds:: Normal
Extremity Edema:: None: Bilateral:
[2025-02-04 11:34] LABS: Glucose - Point of Care 99 mg/dl (70-99)
[2025-02-04 12:54] VITALS: BP 143/65
== END 2025-02-04 13:50 | DRG 190 ==
LOC: 3 WEST ACU 16:11
PROVIDERS: Emergency Medicine; Internal Medicine; Internal Medicine Nephrology; ADMITTING PHYSICIAN Hospitalist; ATTENDING PHYSICIAN General Practice; CONSULT PHYSICIAN Psychiatry & Neurology Clinical Neurophysiology; CONSULT PHYSICIAN Specialist; EMERGENCY PHYSICIAN Student in an Organized Health Care Education/Training Program; FAMILY PHYSICIAN Family Medicine
PROC: 5A1D70Z Performance of Urinary Filtration, Intermittent, Less than 6 Hours Per Day (ICD-10-PCS; 2025-01-27)
DX: J44.1 Chronic obstructive pulmonary disease with (acute) exacerbation (principal); G92.8 Other toxic encephalopathy; N18.6 End stage renal disease; E03.9 Hypothyroidism, unspecified; F41.9 Anxiety disorder, unspecified; G89.29 Other chronic pain; M54.50 Low back pain, unspecified; E78.00 Pure hypercholesterolemia, unspecified; I48.0 Paroxysmal atrial fibrillation; Z75.1 Person awaiting admission to adequate facility elsewhere; Z99.2 Dependence on renal dialysis; Z87.891 Personal history of nicotine dependence; Z11.52 Encounter for screening for COVID-19; Z79.82 Long term (current) use of aspirin; Z79.899 Other long term (current) drug therapy
CPT/HCPCS: 70450; 71046; 80048; 80051; 80053; 82962; 83036; 85014; 85018; 85025; 85027; 87070; 87502; 87811; 93005; 94640; 97116; 97163; 97167; 97530; 97535; 99285; G0257; P9047; Q5106

== ENCOUNTER 2025-03-29 23:48 | Observation (INO) | payer OTHER, SELFPAY ==
[2025-03-29 18:55] VITALS: BP 196/78; BMI 25.9
--- NOTE | 2025-03-29 19:44 | ED.GENMED ---
History of Present Illness
General
Chief Complaint: Weakness
Source: patient
Exam Limitations: none
Time Seen by Provider: 03/29/25 19:09
History of Present Illness
History of Present Illness:
79-year-old female typically Saturday dialysis patient presents today complaining of generalized weakness. She fell 2 days ago injuring her lower back and tailbone. She states she has missed the last 2 dialysis sessions. Her last
dialysis session then was 5 days ago. She is now complaining of weakness and inability to walk. She typically lives at home by herself. No fevers. Her only complaint is tailbone pain and weak
Past History
Past History
ED Past Medical History: COPD, HTN, Hypercholesterolemia, Hypothyroidism, Psychiatric (ADHD, bipolar disorder, psychosis), Other (Glaucoma) and Other (Spinal Stenosis, with chronic low back pain, narcotic dependent)
ED Past Surgical History: and Other (Hernia repair, breast augmentation)
Social History
Tobacco: Former smoker
Alcohol: Occasional
Drug: None
Personal:
Living: alone
Employment: Retired
Family History
Family History: Other (Family history of depression); Negative CAD
Phy Exam
Physical Exam
Physical Exam:
General: Well-appearing female no acute respiratory distress
HEENT: Normocephalic atraumatic
Heart: Regular rate and rhythm
Lungs: Clear no wheeze
Abdomen is soft nontender nondistended
Extremities: No cyanosis
Course
Orders/Labs/Results
Orders:
Orders
03/29/25 19:31
CR Lumbar Spine 2 Or 3 Views Urgent
Comment:
Reason For Exam: fall
CR Sacrum/coccyx Min 2 View Urgent
Comment:
Reason For Exam: fall
03/29/25 19:38
Complete Blood Count/With Diff Urgent
Comprehensive Metabolic Panel Urgent
Abnormal Lab Results
03/29/25
19:38
WBC 4.3 L 10^3/uL
(4.8-10.8)
RBC 3.37 L 10^6/uL
(4.20-5.40)
Hgb 10.8 L g/dL
(12.0-16.0)
Hct 31.8 L %
(37.0-47.0)
MCH 32.0 H pg
(27.0-31.0)
MPV 10.5 H fL
(7.4-10.4)
Absolute Lymphs (auto) 1.0 L 10^3/uL
(1.2-3.4)
Monocytes % 10.4 H %
(1.7-9.3)
Chloride 109 H mmol/L
(98-107)
BUN 28 H mg/dl
(7-17)
Creatinine 2.5 H mg/dL
(0.6-1.0)
Glucose 101 H mg/dl
(70-99)
Total Protein 6.2 L g/dl
(6.3-8.2)
03/29/25 19:38
03/29/25 19:38
Vital Signs
Initial and Last Documented VS:
Initial Vital Signs
Temp Pulse Resp BP Pulse Ox
97.8 F 69 17 196/78 94
03/29/25 18:55 03/29/25 18:55 03/29/25 18:55 03/29/25 18:55 03/29/25 18:55
Last Documented Vital Signs
Temp Pulse Resp BP Pulse Ox
97.8 F 68 25 150/75 93
03/29/25 18:55 03/29/25 21:02 03/29/25 21:02 03/29/25 21:02 03/29/25 21:02
MDM/Problems Addressed
Differential Diagnosis Includes:
Generalized weakness missed 2 dialysis sessions has been 5 days since last dialysis. Also fell 2 days ago injuring the lower back and tailbone. Concern for contusion versus fracture. X-rays of the lumbar spine and sacrum pending. Will check
labs. Patient will likely need to be admitted so she can receive dialysis
*Critical Care Note
Total Time (30-74mins, 75-104mins- exclusive of procedures): Not Applicable
Update Note
Update Note:
X-rays lumbar spine and sacrum negative for acute traumatic injury. Patient here with generalized weakness in the setting of 2 missed hemodialysis sessions. Cannot walk at home. Needs to be admitted for further treatment and likely dialysis
ED Attending Note
-
Portions of this chart may have been created with voice recognition software.� Occasional wrong word or��sound alike� substitutions may have occurred due to the inherent limitations of voice recognition software.
Discharge Plan
Departure
Patient Disposition: Admit
Date of Disposition: 03/29/25
Time of Disposition: 22:05
Presentation/result/management discussed w/ accepting MD/DO: Hospitalist
Discharge Problem:
Weakness
Prescriptions:
No Action
aspirin 81 MG tablet,delayed release (DR/EC)
81 mg PO DAILY
latanoprost 1 DROP drops
1 drp BOTH EYES HS
atorvastatin 20 MG tablet
20 mg PO DAILY
levothyroxine 88 MCG tablet
88 mcg PO DAILY
metoprolol succinate [Toprol XL] 50 mg Tablet Extended Release 24 Hr
50 mg PO BID
Brainstrong Memory Support 120 mg- 110 mg Tablet
1 tab PO DAILY
prednisone 20 mg Tablet
10 mg PO DIRECTED Qty: 0 0RF
Rx Instructions:
Take 20 mg for 3 days and then 10 mg for 3 days then stop
acetaminophen 325 mg Tablet
650 mg PO Q6HPRN PRN (Reason: mild pain/ fever>100.5F) Qty: 0 0RF
ipratropium-albuterol 0.5 mg-3 mg(2.5 mg base)/3 mL Solution For Nebulization
3 ml inhalation R QID Qty: 0 0RF
sennosides-docusate sodium 8.6-50 mg Tablet
1 tab PO BIDPRN PRN (Reason: constipation) Qty: 0 0RF
guaifenesin 100 mg/5 mL Liquid
100 mg PO Q4HPRN PRN (Reason: cough) Qty: 0 0RF
budesonide 0.25 mg/2 mL Suspension For Nebulization
0.25 mg inhalation R BID Qty: 0 0RF
guaifenesin 600 mg Tablet Extended Release 12hr
600 mg PO Q12 Qty: 0 0RF
lorazepam 1 MG tablet
1 mg PO BIDPRN PRN (Reason: anxiety) Qty: 4 0RF
Referrals:
Delvis Vieira, DO [Family Provider, Family Practice]
Interventions
Interventions:
*Risk Screen - Suicide Last Done: 03/29/25 19:26
*General Assessment Last Done: 03/29/25 18:55
*Neglect/Abuse Screening Last Done: 03/29/25 19:26
*ED- Fall Risk Assessment Last Done: 03/29/25 19:26
ED- Cardiac Assessment Last Done: 03/29/25 19:26
ED- Neurological Assessment Last Done: 03/29/25 19:26
ED- Pulmonary Assessment Last Done: 03/29/25 19:26
Discharge Date and Time
Print Language: SLOV[place]
[2025-03-29 19:45] LABS: % Basophils 0.7 % (0-2); % Eosinophils 1.4 % (0-6); % Immature Granulocytes 0.2 % (0-0.5); % Lymphocytes 23.7 % (20.5-51.1); % Monocytes 10.4 % (1.7-9.3); % Neutrophils 63.6 % (42.2-75.2); Absolute Eosinophils 0.1 10^3/uL (0-0.7); Absolute Monocytes 0.5 10^3/uL (0.1-0.6); Absolute Neutrophils 2.7 10^3/uL (1.4-6.5); Hematocrit 31.8 % (37.0-47.0); Hemoglobin 10.8 g/dL (12.0-16.0); Mean Corpuscular Volume 94.4 fL (81.0-99.0); Mean Platelet Volume 10.5 fL (7.4-10.4); Nucleated Red Blood Cells % 0 %; Platelet Count 181 10^3/uL (130-400); Red Blood Cell Count 3.37 10^6/uL (4.20-5.40); Red Cell Dist. Width 13.5 % (11.5-14.5); White Blood Cell Count 4.3 10^3/uL (4.8-10.8)
[2025-03-29 20:06] LABS: ALT (SGPT) 19 U/L (0-35); AST (SGOT) 24 U/L (14-36); Alkaline Phosphatase 108 U/L (38-126); Blood Urea Nitrogen 28 mg/dl (7-17); Calcium 9.8 mg/dl (8.4-10.2); Carbon Dioxide 23 mmol/L (22-30); Chloride 109 mmol/L (98-107); Estimated Creatinine Clearance 15 ml/min; Glucose 101 mg/dl (70-99); Potassium 3.7 mmol/L (3.5-5.1); Sodium 139 mmol/L (135-145); Total Bilirubin 0.5 mg/dl (0.2-1.3); Total Protein 6.2 g/dl (6.3-8.2); eGFR 19.08
[2025-03-29 21:02] VITALS: BP 150/75
[2025-03-29 22:00] VITALS: BP 158/54
--- NOTE | 2025-03-29 22:58 | HPS.HSE ---
Family Physician
-
Family Physician: Delvis Vieira
Chief Complaint
-
No weakness
History of Present Illness
This is a 79-year-old female with past medical history of end-stage renal disease on hemodialysis Saturday, hypertension, COPD not on home O2, hypothyroidism presenting to the emergency department with weakness. She stated she has
been having generalized weakness for some time now. She missed last 2 sessions of dialysis. She reports that now she is unable to walk. Denies having any fevers or chills. Denies any shortness of breath at rest. Denies any cough. She denies
any lower extremity swelling palpitations chest pain lightheadedness or syncope. She did have a fall 2 days ago. No loss of consciousness.
She states she has been compliant with her medications and she has caregiver who comes in daily to see but otherwise she lives alone. She reports that she still makes urine and states that she has some incontinence but denies any dysuria flank pain
nausea vomiting or diarrhea.
During the emergency department she was hemodynamically stable and afebrile with appropriate 158/50 and a pulse of 72. She is satting 95% on room air. Temperature was 97.8.
ECG pending. X-rays of the coccyx and lumbar spine without any acute fractures.
CBC is unremarkable stop electrolytes are actually normal with a potassium of 3.7 and a bicarb of 23. BUN/creatinine at 28 and 2.5.
Medical History
Past Medical History
Past Medical History: Reports Other (Hypertension, hyperlipidemia, hypothyroidism, end-stage renal disease on hemodialysis, anxiety, COPD.)
Past Surgical History: Reports Other
Social History
Tobacco: Former Smoker
Alcohol: None
Drug: None
Family History
Family History: Not pertinent
Allergies / Home Medications
Allergies reflects when Allergies were last updated in [facility].
Home Medications with original date entered in [facility]
Allergy/Medication List:
Allergies
Allergy/AdvReac Type Severity Reaction Status Date / Time
morphine Allergy Nausea / Verified 01/26/25 18:43
Vomiting
Home Medications
aspirin 81 mg tablet,delayed release 81 mg PO DAILY Blood clot prevention/tx 04/09/19
atorvastatin 20 mg tablet 20 mg PO DAILY High cholesterol 03/16/20
latanoprost 0.005 % eye drops 1 drp BOTH EYES HS Eye condition 03/16/20
levothyroxine 88 mcg tablet 88 mcg PO DAILY hypothyroidism 11/02/20
metoprolol succinate 50 mg tablet,extended release 24 hr (Toprol XL) 50 mg PO BID Heart Disease/BP 07/01/24
ginkgo biloba leaf extract 120 mg-choline bitartrate 110 mg tablet ([facility]) 1 tab PO DAILY Supplement 01/26/25
acetaminophen 325 mg tablet 650 mg (2 x 325 mg) PO Q6HPRN PRN mild pain/ fever>100.5F #0 tabs 02/01/25
budesonide 0.25 mg/2 mL suspension for nebulization 0.25 mg (2 mL) inhalation R BID #0 mL 02/01/25
guaifenesin 100 mg/5 mL oral liquid 100 mg (5 mL) PO Q4HPRN PRN cough #0 mL 02/01/25
guaifenesin 600 mg tablet, extended release 12 hr 600 mg PO Q12 #0 tabs 02/01/25
ipratropium 0.5 mg-albuterol 3 mg (2.5 mg base)/3 mL nebulization soln 3 ml inhalation R QID #0 mL 02/01/25
prednisone 20 mg tablet 10 mg (1/2 x 20 mg) PO DIRECTED #0 tabs 02/01/25
sennosides 8.6 mg-docusate sodium 50 mg tablet 1 tab PO BIDPRN PRN constipation #0 tabs 02/01/25
lorazepam 1 mg tablet 1 mg PO BIDPRN PRN anxiety #4 tabs 02/04/25
Review of Systems
-
A 12 point ROS was completed and negative except as noted: Yes
Constitutional: Reports No Symptoms
EENT: Reports No Symptoms
Respiratory: Reports No Symptoms
Cardiac: Reports No Symptoms
Abdomen/GI: Reports No Symptoms
: Reports No Symptoms
Musculoskeletal: Reports No Symptoms
Skin: Reports No Symptoms
Neurological: Reports No Symptoms
Endocrine: Reports No Symptoms
Hematologic/Lymphatic: Reports No Symptoms
Psych: Reports No Symptoms
Physical Exam
Vital Signs
Vital Signs
Temp Pulse Resp BP Pulse Ox
97.8 F 72 20 158/54 95
03/29/25 18:55 03/29/25 22:45 03/29/25 22:45 03/29/25 22:00 03/29/25 22:45
Physical Exam
General: Well Developed, Well Nourished and No Apparent Distress
HEENT: NormoCephalic, Moist mucous membranes and Atraumatic
Respiratory: Clear
Cardiac: S1/S2 and Regular Rhythm; No Murmur or Rub
GI: Soft, Non Tender, Non Distended and Normal Bowel Sounds; No Organomegaly
Rectal: Deferred by Provider
Musculoskeletal: No Clubbing, No Cyanosis and No Edema
Skin: No Rash
Neuro: Nonfocal/grossly intact
Laboratory Results
-
03/29/25 19:38
03/29/25 19:38
Laboratory Results
Total Bilirubin 0.5 mg/dl (0.2-1.3) 03/29/25 19:38
AST 24 U/L (14-36) 03/29/25 19:38
ALT 19 U/L (0-35) 03/29/25 19:38
Alkaline Phosphatase 108 U/L (38-126) 03/29/25 19:38
Data Reviewed
-
Diagnostic Radiology: Report Reviewed by me
Lab Data: Labs Reviewed by me
Old Records: Reviewed
Impression/Plan
-
IMPRESSION:
79-year-old female with history of end-stage renal disease on hemodialysis, hypertension, hyperlipidemia, hypothyroid, COPD/asthma who presents to the emergency department with weakness. She had a fall 2 days ago and reports back pain. X-ray of
the coccyx and lumbar spine are negative for any acute fractures. She reports incontinence but denies dysuria or flank pain. She has no leukocytosis fevers chills or any other signs of acute infection. She denies any respiratory symptoms. She
denies any focal logical deficits. She denies lightheadedness dizziness and is hypertensive here in the emergency department. Missed dialysis on Saturday and Saturday. Labs are stable with a potassium of 3.7 bicarb of 23. BUN is only 28. CBC was
unremarkable.
PLAN:
Weakness -uncertain etiology, no focal deficits, no focal obvious infection, no chest pain or shortness of breath. Normal sinus rhythm on telemetry
-Admit to [facility]
-ECG, chest x-ray
- COVID, flu,
-UA with reflex culture
-TSH
- Orthostatic vital signs
- PT eval
ESRD - Last HD unknown, says missed 2 sessions. HTN but labs very stable. K 3.7. bicarb 23. No edema.
- nephrology consultation
- fluid restriction
- renal diet
Hypertension-
Continue metoprolol
Hyperlipidemia-
Continue atorvastatin
Hypothyroidism-
Continue levothyroxine 88 mcg p.o. daily
check tsh
Anxiety-
prn ativan
DVT prophylaxis - heparin SQ
Code Status - Full code, no prolonged intubation
[2025-03-29 23:00] VITALS: BP 189/86
[2025-03-30 00:03] VITALS: BP 184/66
[2025-03-30 00:20] LABS: COVID-19 Antigen Negative (Negative)
[2025-03-30 00:55] VITALS: BP 184/66
[2025-03-30 01:12] VITALS: BP 172/76
--- NOTE | 2025-03-30 01:15 | PTCARENOTE ---
Pt recieved from ED via stretcher at 0100. Pt AAOx3, VSS, and absent of pain. Pt pulled into bed from stretcher. Pt receptive to room and call sal. Pt bed in lowest position and call sal within reach. Pt educated on importance of call sal usage,
pt relays understanding and cooperation. Bed alarm placed and plugged in as pt is forgetful. Will continue with current plan of care.
[2025-03-30 01:34] VITALS: BMI 25.9
[2025-03-30] MEDS: HEPARIN 5000 UNITS SC ×4 (01:54→22:55)
[2025-03-30 04:06] LABS: Urine Albumin 3+ (Neg - Trace); Urine Bilirubin Negative (Negative); Urine Character Clear (Clear); Urine Color Yellow; Urine Glucose Negative (Negative); Urine Ketone Negative (Negative); Urine Leukocyte Negative (Negative); Urine Nitrite Negative (Negative); Urine Occult Blood 1+ (Negative); Urine Urobilinogen Negative (Neg - 1+)
[2025-03-30 04:47] LABS: Urine Squamous Cell >30 /LPF (Few)
[2025-03-30 04:48] LABS: Urine Amorphous Seen; Urine Urothelial Cell >30 /LPF (FEW)
[2025-03-30 04:50] LABS: Urine Bacteria Moderate (Negative)
[2025-03-30] MEDS: SYNTHROID 88 MCG PO (05:18)
[2025-03-30 06:00] VITALS: BMI 25.0
[2025-03-30 07:04] LABS: Hematocrit 32.5 % (37.0-47.0); Mean Corp Hgb Conc. 33.8 g/dL (33.0-37.0); Mean Corpuscular Hgb 31.9 pg (27.0-31.0); Mean Corpuscular Volume 94.2 fL (81.0-99.0); Mean Platelet Volume 10.6 fL (7.4-10.4); Platelet Count 163 10^3/uL (130-400); Red Blood Cell Count 3.45 10^6/uL (4.20-5.40); Red Cell Dist. Width 13.5 % (11.5-14.5)
[2025-03-30 07:39] LABS: Blood Urea Nitrogen 24 mg/dl (7-17); Calcium 9.4 mg/dl (8.4-10.2); Carbon Dioxide 20 mmol/L (22-30); Chloride 113 mmol/L (98-107); Estimated Creatinine Clearance 14 ml/min; Glucose 83 mg/dl (70-99); Magnesium 1.9 mg/dl (1.6-2.3); Potassium 3.5 mmol/L (3.5-5.1); Sodium 141 mmol/L (135-145); eGFR 21.09
[2025-03-30] MEDS: PULMICORT 0.25 MG INH ×2 (08:03→20:42)
[2025-03-30] MEDS: DUONEB 3 ML INH ×4 (08:03→20:42)
[2025-03-30 08:13] VITALS: BP 197/84
[2025-03-30] MEDS: TOPROL XL 50 MG PO ×2 (08:48→20:03)
[2025-03-30] MEDS: ASPIR LOW (ENTERIC COATED) 81 MG PO (08:49)
[2025-03-30] MEDS: LIPITOR 20 MG PO (08:49)
--- NOTE | 2025-03-30 08:58 | W.CON.NEPH ---
Consultation
-
Date/Time Consultation Requested: 03/30/2025 7:00 AM
Date/Time Consultation Performed: 03/30/2025 9:00 AM
Requesting Provider: Dr. Russo
Performing Provider: Dr. Hawk
Reason for Consultation: ESRD
Medical History
-
Chief Complaint: ESRD
History of Present Illness:
This is a 79-year-old female who is well-known to us for her end-stage renal disease on hemodialysis Saturday at [place] [facility]. She has a functional left upper extremity AV fistula. She has hypertension on monotherapy regimen,
hyperlipidemia on statin therapy, hypothyroidism on Synthroid therapy. The patient presented to the emergency room with weakness. She missed last 2 sessions of dialysis. She reports that now she is unable to walk. Denies having any fevers or
chills. Denies any shortness of breath at rest. Denies any cough. She denies any lower extremity swelling palpitations chest pain lightheadedness or syncope. She did have a fall 2 days ago. No loss of consciousness.
Past Medical History
ESRD, bipolar, paroxysmal atrial fibrillation, hypertension, anemia, spinal stenosis, bilateral breast implants, left AV fistula, stroke, COPD, coronary disease, glaucoma, hernia repair, , hypothyroidism
Social History
Tobacco: Former Smoker
Alcohol: Occasional
Family History
Family History: Not Pertinent
Allergies / Home Medications
Allergy/AdvReac Type Severity Reaction Status Date / Time
morphine Allergy Nausea / Verified 01/26/25 18:43
Vomiting
�Medication �Instructions �Recorded �Confirmed �Type
aspirin 81 mg tablet,delayed 81 mg PO DAILY Blood clot 04/09/19 03/30/25 History
release prevention/tx
atorvastatin 20 mg tablet 20 mg PO DAILY High cholesterol 03/16/20 03/30/25 History
latanoprost 0.005 % eye drops 1 drp BOTH EYES HS Eye condition 03/16/20 03/30/25 History
levothyroxine 88 mcg tablet 88 mcg PO DAILY hypothyroidism 11/02/20 03/30/25 History
metoprolol succinate 50 mg 50 mg PO BID Heart Disease/BP 07/01/24 03/30/25 History
tablet,extended release 24 hr
(Toprol XL)
ginkgo biloba leaf extract 120 1 tab PO DAILY Supplement 01/26/25 03/30/25 History
mg-choline bitartrate 110 mg
tablet ([facility])
acetaminophen 325 mg tablet 650 mg (2 x 325 mg) PO Q6HPRN PRN 02/01/25 03/30/25 Rx
mild pain/ fever>100.5F #0 tabs
budesonide 0.25 mg/2 mL suspension 0.25 mg (2 mL) inhalation R BID #0 02/01/25 03/30/25 Rx
for nebulization mL
guaifenesin 100 mg/5 mL oral liquid 100 mg (5 mL) PO Q4HPRN PRN cough 02/01/25 03/30/25 Rx
#0 mL
guaifenesin 600 mg tablet, 600 mg PO Q12 #0 tabs 02/01/25 03/30/25 Rx
extended release 12 hr
ipratropium 0.5 mg-albuterol 3 mg 3 ml inhalation R QID #0 mL 02/01/25 03/30/25 Rx
(2.5 mg base)/3 mL nebulization
soln
prednisone 20 mg tablet 10 mg (1/2 x 20 mg) PO DIRECTED 02/01/25 03/30/25 Rx
#0 tabs
sennosides 8.6 mg-docusate sodium 1 tab PO BIDPRN PRN constipation 02/01/25 03/30/25 Rx
50 mg tablet #0 tabs
lorazepam 1 mg tablet 1 mg PO BIDPRN PRN anxiety #4 tabs 02/04/25 03/30/25 Rx
Review of Systems
-
History Source: Patient
All other systems: Negative unless noted
Constitutional: Other (Weakness, ambulatory dysfunction)
: Other (Very little urine output)
Musculoskeletal: Other (Sacral and coccyx pain)
Physical Exam
Vital Signs
Vital Signs
Temp Pulse Resp BP Pulse Ox
98.2 F 72 20 197/84 95
03/30/25 08:13 03/30/25 08:48 03/30/25 08:13 03/30/25 08:48 03/30/25 08:13
Lab Results
WBC 6.0 10^3/uL (4.8-10.8) 03/30/25 06:31
RBC 3.45 10^6/uL (4.20-5.40) L 03/30/25 06:31
Hgb 11.0 g/dL (12.0-16.0) L 03/30/25 06:31
Hct 32.5 % (37.0-47.0) L 03/30/25 06:31
Plt Count 163 10^3/uL (130-400) 03/30/25 06:31
Sodium 141 mmol/L (135-145) 03/30/25 06:31
Potassium 3.5 mmol/L (3.5-5.1) 03/30/25 06:31
Chloride 113 mmol/L (98-107) H 03/30/25 06:31
Carbon Dioxide 20 mmol/L (22-30) L 03/30/25 06:31
BUN 24 mg/dl (7-17) H 03/30/25 06:31
Creatinine 2.3 mg/dL (0.6-1.0) H 03/30/25 06:31
eGFR 21.09 03/30/25 06:31
Glucose 83 mg/dl (70-99) 03/30/25 06:31
Calcium 9.4 mg/dl (8.4-10.2) 03/30/25 06:31
Albumin 4.0 g/dl (3.5-5.0) 03/29/25 19:38
Physical Exam
General: AOx3, Nontoxic , NAD
HEENT: PERRL, EOMI, Anicteric, Conjunctivae Clear, Ear/Nose Intact, Hearing Normal, Oropharynx Clear/Moist, Dentition Intact, Facial Symmetry, Neck Supple, Neck: Trachea Midline, No JVD and No Thyromegaly, no Bruits
Respiratory: Clear to auscultation bilaterally with normal lung exersion
Cardiac: S1/S2 and Regular Rate/Rhythm
Breast: Deferred by me
Abdomen: Soft, Nontender, Nondistended, Normal Bowel Sounds and No Hepatosplenomegaly
Rectal: Deferred by Provider
Genito-urinary: No Costovertebral Tenderness
Extremities: No Clubbing, No Cyanosis and No Edema
Skin: No Rash or open lesions
Neuro: Nonfocal/Grossly Intact, CN II-XII (Intact) and Strength (Musculoskeletal exam 5 out of 5 both upper and lower extremities)
Hematologic/Lymphatic: No Cervical Lymphadenopathy, No Submandibular Lymphadenopathy and No Supraclavicular Lymphadenopathy
Psych: Mood/afflect pleasant, Insight/judgement good and Appropriate
Vascular: plus 1 pedal and radial pulses
Vascular Access: AVF (Left upper extremity: with good thrill and bruit)
Data Reviewed
-
Radiology: Image Personally Visualized and interpreted (Chest x-ray personally reviewed without evidence of pneumonic infiltrate or congestive heart)
Labs: Labs Reviewed by me (BMP CBC)
Old Records: Reviewed (Nephrology consult reviewed from 01/26/2025 for ESRD in EMR)
Assessment/Plan
-
Assessment
Presentation with weakness and ambulatory dysfunction
ESRD Saturday
Hypertension
Paroxysmal atrial fibrillation
COPD
Bronchitis
Shortness of breath
Left AV fistula
Plan
HD today,orders provided
Maintain metoprolol for hypertension will also reduce dry weight on hemodialysis for better blood pressure control
PT Evaluation
Appropriate fluid restriction and dietary restrictions
As needed hydralazine provided for blood pressure control
--- NOTE | 2025-03-30 10:00 | W.PN.HOSP.TC ---
Today's Communication/Plan
-
see plan
Assessment / Plan
Assessment / Plan
IMPRESSION:
79-year-old female with history of end-stage renal disease on hemodialysis, hypertension, hyperlipidemia, hypothyroid, COPD/asthma who presents to the emergency department with weakness. She had a fall 2 days ago and reports back pain. X-ray of
the coccyx and lumbar spine are negative for any acute fractures. She reports incontinence but denies dysuria or flank pain. She has no leukocytosis fevers chills or any other signs of acute infection. She denies any respiratory symptoms. She
denies any focal logical deficits. She denies lightheadedness dizziness and is hypertensive here in the emergency department. Missed dialysis on Saturday and Saturday. Labs are stable with a potassium of 3.7 bicarb of 23. BUN is only 28. CBC was
unremarkable.
PLAN:
Weakness - likely 2/2 missed HD sessions and recent fall
-Admit to [facility]
- CXR without pneumonia; UA with 3-5 WBC
- COVID, flu negative
-TSH mildly elevated (see below)
-HD per renal (see below)
- Orthostatic vital signs
- PT eval
Hypothyroidism
-Patient reports taking synthroid daily on empty stomach; TSH 14 --> increased from 88mcg to 100 mcg daily
ESRD - Last HD unknown, says missed 2 sessions.
- nephrology consultation
- HD today
- fluid restriction
- renal diet
Hypertension-
Continue metoprolol
Hyperlipidemia-
Continue atorvastatin
Anxiety-
prn ativan
DVT prophylaxis - heparin SQ
Code Status - Full code, no prolonged intubation
Anticipated Discharge: 24 - 48 hours
Subjective/Interval History
-
Date of Service: March 30, 2025
no chest pain or shortness of breath at rest
states she is urinating a lot
Objective Data
-
Labs:
Laboratory Results
03/30/25
06:31
WBC 6.0
Hgb 11.0 L
Hct 32.5 L
Plt Count 163
Sodium 141
Potassium 3.5
Chloride 113 H
Carbon Dioxide 20 L
BUN 24 H
Creatinine 2.3 H
Glucose 83
Calcium 9.4
Vital Signs:
Vital Signs
Temp Pulse Resp BP Pulse Ox
98.2 F 72 20 197/84 95
03/30/25 08:13 03/30/25 08:48 03/30/25 08:13 03/30/25 08:48 03/30/25 08:13
Review of Systems
-
History Source: Patient
All other systems: Reviewed and negative
Physical Exam
-
General: No Apparent Distress
HEENT: PERRLA
Respiratory: Clear to Auscultation; Negative Wheezes
Cardiac: Regular Rhythm and S1/S2
GI: Soft and Nontender
Musculoskeletal: No Edema
Skin: Warm and Dry; Negative Rash
Neuro: AO x 3 and Other (can flex bilateral knees and lift bilateral legs off bed; 5/5 strength foot dorsi and plantar flexion; sensation in tact )
Psych: Calm
Data Reviewed
-
Diagnostic Radiology: Report Reviewed by me
Labs: Labs Reviewed by me
--- NOTE | 2025-03-30 13:37 | W.PN.NEPH.HD ---
Assessment
-
Patient on dialysis
Systolic blood pressure stable with current UF
Progress Note - Hemodialysis
-
Date of Service: March 30, 2025
Duration: 30 minutes and 3 hours
Potassium Bath: 3
Calcium Bath: 2.5
Opti-Dialyzer: 160
Ultrafiltration: Other (2 kg as tolerated)
Blood Flow: 400
Dialysate Flow: 600
Heparin: None
EPO: None
--- NOTE | 2025-03-30 14:39 | CM ---
information systems security manager reviewed patient's chart and met with patient and patient was admitted under OBS, TOMLIN letter completed and placed on chart, patient lives alone in a 2nd floor apartment, elevator accessible, patient is independent with adl's and uses a
cane or walker with ambulation, patient reports that she has a helper in home that assists her. Patient has HD at [facility] in [place], Sat, uses [place] [facility] transport to HD. Patient's grandson is contact for emergencies. Home when stable.
PCP: Dr Vieira
Pharmacy: [facility]
Plan; Home when stable.
[facility]
[phone]
[2025-03-30] MEDS: MANNITOL 25% 12.5 GRAMS IV (15:37)
[2025-03-30 16:02] VITALS: BP 148/71
[2025-03-30] MEDS: TYLENOL 650 MG PO (18:03)
[2025-03-30] MEDS: XALATAN OPHTHALMIC SOLUTION 1 DROP BOTH EYES (22:48)
[2025-03-30 22:50] VITALS: BP 115/48
[2025-03-31] MEDS: SYNTHROID 100 MCG PO (05:43)
[2025-03-31 07:00] VITALS: BP 159/66
[2025-03-31] MEDS: PULMICORT 0.25 MG INH ×2 (07:55→20:12)
[2025-03-31] MEDS: DUONEB 3 ML INH ×4 (07:55→20:13)
[2025-03-31] MEDS: ASPIR LOW (ENTERIC COATED) 81 MG PO (08:41)
[2025-03-31] MEDS: HEPARIN 5000 UNITS SC ×3 (08:41→23:45)
[2025-03-31] MEDS: TOPROL XL 50 MG PO ×2 (08:42→20:26)
[2025-03-31] MEDS: LIPITOR 20 MG PO (08:42)
--- NOTE | 2025-03-31 10:25 | CM ---
Addendum entered by Sabi Zhong 03/31/25 11:37:
Chart reviewed and patient is for possible discharge tomorrow, patient would benefit from visiting nurses, options reviewed and patient is agreeable to [facility], [facility] liaison contacted.
Plan; Home with [facility] and outpatient HD at [facility].
Original Note:
Chart reviewed and case filler met with patient and spoke with PT, plan will be for patient to return to home with resumption of care with private caregiver. Patient is on HD Sat-Sat-Sat at [facility].
[facility]
[phone]

Plan; Home when stable.
[2025-03-31 10:54] VITALS: BP 147/63
--- NOTE | 2025-03-31 11:14 | W.PN.HOSP.TC ---
Today's Communication/Plan
-
HD today
expect DC tomorrow
Assessment / Plan
Assessment / Plan
IMPRESSION:
79-year-old female with history of end-stage renal disease on hemodialysis, hypertension, hyperlipidemia, hypothyroid, COPD/asthma who presents to the emergency department with weakness. She had a fall 2 days ago and reports back pain. X-ray of
the coccyx and lumbar spine are negative for any acute fractures. She reports incontinence but denies dysuria or flank pain. She has no leukocytosis fevers chills or any other signs of acute infection. She denies any respiratory symptoms. She
denies any focal logical deficits. She denies lightheadedness dizziness and is hypertensive here in the emergency department. Missed dialysis on Saturday and Saturday. Labs are stable with a potassium of 3.7 bicarb of 23. BUN is only 28. CBC was
unremarkable.
PLAN:
Weakness - likely 2/2 missed HD sessions and recent fall
-Admit to [facility]
- CXR without pneumonia; UA with 3-5 WBC
- COVID, flu negative
-TSH mildly elevated (see below)
-HD per renal (see below)
- Orthostatic vital signs
- PT eval - follow up notes; patient able to ambulate better this morning post HD yesterda y
Hypothyroidism
-Patient reports taking synthroid daily on empty stomach; TSH 14 --> increased from 88mcg to 100 mcg daily
ESRD - Last HD unknown, says missed 2 sessions.
- nephrology consultation
- HD again today
- fluid restriction
- renal diet
Hypertension-
Continue metoprolol
Hyperlipidemia-
Continue atorvastatin
Anxiety-
prn ativan
DVT prophylaxis - heparin SQ
Code Status - Full code, no prolonged intubation
Anticipated Discharge: 24 - 48 hours
Subjective/Interval History
-
Date of Service: March 31, 2025
feeling anxious this morning
worked well with PT
Objective Data
-
Labs:
Laboratory Results
03/31/25
10:46
Hgb Pending
Hct Pending
Sodium Pending
Potassium Pending
Chloride Pending
Carbon Dioxide Pending
Vital Signs:
Vital Signs
Temp Pulse Resp BP Pulse Ox
98.2 F 66 16 159/66 97
03/31/25 07:00 03/31/25 08:42 03/31/25 07:57 03/31/25 08:42 03/31/25 07:57
I&O
03/30/25 03/31/25 04/01/25
06:59 06:59 06:59
Intake Total 120 / 120 120 / 120
Balance 120 / 120 120 / 120
Review of Systems
-
History Source: Patient
All other systems: Reviewed and negative
Physical Exam
-
General: No Apparent Distress
HEENT: PERRLA
Respiratory: Clear to Auscultation; Negative Wheezes
Cardiac: Regular Rhythm and S1/S2
GI: Soft and Nontender
Musculoskeletal: No Edema
Skin: Warm and Dry; Negative Rash
Neuro: AO x 3 and Other
Psych: Calm
Data Reviewed
-
Diagnostic Radiology: Report Reviewed by me
Labs: Labs Reviewed by me
[2025-03-31] MEDS: ATIVAN 1 MG PO ×2 (11:23→23:45)
--- NOTE | 2025-03-31 11:52 | VNURNOTE ---
Chart reviewed, [facility] of dementia. Home Health Liaison spoke with patient's primary contact, Cb, to discuss [facility] nurse/therapy, visits, schedule and homebound status. He is agreeable and understands that visits at home will be 2-3 x per week to
assess and teach medical management. Elisha confirms that pt is current with Dr Vieira. He is aware that [facility] will contact them for start of care in 1-2 days after discharge from .
[facility] referral completed in [facility].
--- NOTE | 2025-03-31 14:04 | W.PN.NEPH.HD ---
Assessment
-
Seen on HD. no complaints. VSS, access ok
Progress Note - Hemodialysis
-
Date of Service: March 31, 2025
Duration: 30 minutes and 3 hours
Potassium Bath: 3
Calcium Bath: 2.5
Opti-Dialyzer: 160
Ultrafiltration: Other (2kg)
Blood Flow: 400
Dialysate Flow: 600
Heparin: 0
EPO: 0
[2025-03-31 15:00] VITALS: BP 132/70
[2025-03-31] MEDS: XALATAN OPHTHALMIC SOLUTION 1 DROP BOTH EYES (21:46)
[2025-03-31 23:34] VITALS: BP 142/68
[2025-04-01] MEDS: SYNTHROID 100 MCG PO (05:32)
[2025-04-01 06:00] VITALS: BMI 24.3
[2025-04-01] MEDS: PULMICORT 0.25 MG INH (07:47)
[2025-04-01] MEDS: DUONEB 3 ML INH ×3 (07:47→15:18)
[2025-04-01 08:00] VITALS: BP 154/69
[2025-04-01] MEDS: LIPITOR 20 MG PO (08:17)
[2025-04-01] MEDS: ASPIR LOW (ENTERIC COATED) 81 MG PO (08:17)
[2025-04-01] MEDS: HEPARIN 5000 UNITS SC (08:17)
[2025-04-01] MEDS: TOPROL XL 50 MG PO (08:17)
--- NOTE | 2025-04-01 10:58 | CM ---
Addendum entered by Sabi Zhong 04/01/25 12:06:
Elisha Vivar to pick patient up today.
Original Note:
Chart reviewed and patient is for possible discharge today to home, with [facility] and outpatient HD at [facility], casework manager will notify [facility] of possible HD tomorrow.
Plan; Home with [facility] and outpatient HD with [facility]
[phone]
[2025-04-01] MEDS: ATIVAN 1 MG PO (11:05)
--- NOTE | 2025-04-01 11:05 | W.PN.HOSP.TC ---
Today's Communication/Plan
-
OK for DC today
Assessment / Plan
Assessment / Plan
IMPRESSION:
79-year-old female with history of end-stage renal disease on hemodialysis, hypertension, hyperlipidemia, hypothyroid, COPD/asthma who presents to the emergency department with weakness. She had a fall 2 days ago and reports back pain. X-ray of
the coccyx and lumbar spine are negative for any acute fractures. She reports incontinence but denies dysuria or flank pain. She has no leukocytosis fevers chills or any other signs of acute infection. She denies any respiratory symptoms. She
denies any focal logical deficits. She denies lightheadedness dizziness and is hypertensive here in the emergency department. Missed dialysis on Saturday and Saturday. Labs are stable with a potassium of 3.7 bicarb of 23. BUN is only 28. CBC was
unremarkable.
PLAN:
Weakness - likely 2/2 missed HD sessions and recent fall
-Admitted to [facility]
-no e/o infection
-s/p 2 sessions HD
-patient ambulated well with PT yesterday
- PT - HH recommended
Hypothyroidism
-Patient reports taking synthroid daily on empty stomach; TSH 14 --> increased from 88mcg to 100 mcg daily
ESRD - Last HD unknown, says missed 2 sessions.
- nephrology consultation appreciated
- patient states she won't miss any further HD sessions
Hypertension-
Continue metoprolol
Hyperlipidemia-
Continue atorvastatin
Anxiety-
prn ativan
DVT prophylaxis - heparin SQ
Code Status - Full code, no prolonged intubation
Anticipated Discharge: Today
Subjective/Interval History
-
Date of Service: April 01, 2025
feeling better today
ambulated well with PT yesterday
feels ready to go home
Objective Data
-
Vital Signs:
Vital Signs
Temp Pulse Resp BP Pulse Ox
98.2 F 63 16 154/69 94
04/01/25 08:00 04/01/25 08:17 04/01/25 08:00 04/01/25 08:17 04/01/25 08:00
I&O
03/31/25 04/01/25 04/02/25
06:59 06:59 06:59
Intake Total 120 / 120 120 / 120
Balance 120 / 120 120 / 120
Review of Systems
-
History Source: Patient
All other systems: Reviewed and negative
Physical Exam
-
General: No Apparent Distress
HEENT: PERRLA
Respiratory: Clear to Auscultation; Negative Wheezes
Cardiac: Regular Rhythm and S1/S2
GI: Soft and Nontender
Musculoskeletal: No Edema
Skin: Warm and Dry; Negative Rash
Neuro: AO x 3 and Other
Psych: Calm
Data Reviewed
-
Diagnostic Radiology: Report Reviewed by me
Labs: Labs Reviewed by me
--- NOTE | 2025-04-01 11:14 | W.DS.TRANS ---
DC Summary - [employer]
-
Discharge Instructions:
Sleep Apnea Risk Intermediate
Discharge Diagnosis/Procedures weakness secondary to missed HD sessions
Diet Restrict fluids to 48 oz,2 Gram Sodium
Activity As tolerated
Driving Restrictions As prior to admission
Bathing Restrictions None
Blood Work thyroid function tests to be ordered by your PCP
in 4 weeks
Other Services PT,VN,OT
Instructions:
Stand-Alone Forms:
Changes to Home Medications: Yes
Discharge Medications:
DC Medications w/original date entered in [employer]
aspirin 81 mg tablet,delayed release 81 mg PO DAILY Blood clot prevention/tx 04/09/19
atorvastatin 20 mg tablet 20 mg PO DAILY High cholesterol 03/16/20
latanoprost 0.005 % eye drops 1 drp BOTH EYES HS Eye condition 03/16/20
metoprolol succinate 50 mg tablet,extended release 24 hr (Toprol XL) 50 mg PO BID Heart Disease/BP 07/01/24
ginkgo biloba leaf extract 120 mg-choline bitartrate 110 mg tablet ([facility]) 1 tab PO DAILY Supplement 01/26/25
acetaminophen 325 mg tablet 650 mg (2 x 325 mg) PO Q6HPRN PRN mild pain/ fever>100.5F #0 tabs 02/01/25
budesonide 0.25 mg/2 mL suspension for nebulization 0.25 mg (2 mL) inhalation R BID #0 mL 02/01/25
guaifenesin 100 mg/5 mL oral liquid 100 mg (5 mL) PO Q4HPRN PRN cough #0 mL 02/01/25
guaifenesin 600 mg tablet, extended release 12 hr 600 mg PO Q12 #0 tabs 02/01/25
ipratropium 0.5 mg-albuterol 3 mg (2.5 mg base)/3 mL nebulization soln 3 ml inhalation R QID #0 mL 02/01/25
sennosides 8.6 mg-docusate sodium 50 mg tablet 1 tab PO BIDPRN PRN constipation #0 tabs 02/01/25
lorazepam 1 mg tablet 1 mg PO BIDPRN PRN anxiety #4 tabs 02/04/25
levothyroxine 100 mcg tablet 100 mcg PO DAILY @ 0600 #30 tabs 04/01/25
Home Medication Changes
CORRECTIONS CORPORAL Synthroid dosing increased
Pending Results: No
--- NOTE | 2025-04-01 12:26 | W.DCSUMMARY ---
Discharge Summary
Discharge Data
Date of Admission: 03/29/25
Date of Discharge: 04/01/25
-
Pending Results: No
Hospital Course
Discharging Physician : Dr. Joyce Russo
Disposition : Home with VN
Primary care physician : Dr. Delvis Vieira
Principal Discharge diagnosis : weakness after missing HD sessions
Hospital Course :
Ms. Anastasia Ramirez is a 79 yo woman with hx ESRD on HD, hypertension, hyperlipidemia, hypothyroid, COPD/asthma who presents to the emergency department with weakness, with recent fall.
Triage vitals significant for hypertension. Labs without leukocytosis, K+ 3.7, glucose 101. Lumbar spine x-ray without fracture.
She was admitted to medicine with Nephrology consulting. She received 2 days in a row of HD in the hospital. Weakness improved. She worked well with PT and HH arranged. Patient reports that she will no longer miss HD sessions understanding risks
to her health.
Time spent on discharge was 31 minutes.
Important imaging findings :
Lumbar Spine X-Ray
Sacrum and Coccyx X-Ray
IMPRESSION:
Moderate multilevel degenerative changes of the lumbar spine without evidence for acute fracture.
Mild to moderate symmetric degenerative changes of the bilateral sacroiliac joints.
Procedure findings :
Discharge Plan
-
Patient Disposition: Home (Routine Discharge)
Discharge Diagnosis/Procedures: weakness secondary to missed HD sessions
Diet: 2 Gram Sodium and Restrict fluids to 48 oz
Activity: As tolerated
Driving Restrictions: As prior to admission
Bathing Restrictions: None
Blood Work: thyroid function tests to be ordered by your PCP in 4 weeks
Other Services: VN, PT and OT
Referrals:
Delvis Vieira, DO [Family Provider, Family Practice] - in less than 1 week
Additional Discharge Medication Instructions: Stop Levothyroxine 88mcg; this is increased to 100mcg. Dosing will be monitored by your PCP, Dr. Vieira.
Missing HD sessions will result in weakness, shortness of breath and risks for readmission.
Prescriptions:
New
levothyroxine 100 mcg Tablet
100 mcg PO DAILY @ 0600 Qty: 30 0RF
Continued
aspirin 81 MG tablet,delayed release (DR/EC)
81 mg PO DAILY
latanoprost 1 DROP drops
1 drp BOTH EYES HS
atorvastatin 20 MG tablet
20 mg PO DAILY
metoprolol succinate [Toprol XL] 50 mg Tablet Extended Release 24 Hr
50 mg PO BID
Brainstron Memory Support 120 mg- 110 mg Tablet
1 tab PO DAILY
acetaminophen 325 mg Tablet
650 mg PO Q6HPRN PRN (Reason: mild pain/ fever>100.5F) Qty: 0 0RF
ipratropium-albuterol 0.5 mg-3 mg(2.5 mg base)/3 mL Solution For Nebulization
3 ml inhalation R QID Qty: 0 0RF
sennosides-docusate sodium 8.6-50 mg Tablet
1 tab PO BIDPRN PRN (Reason: constipation) Qty: 0 0RF
guaifenesin 100 mg/5 mL Liquid
100 mg PO Q4HPRN PRN (Reason: cough) Qty: 0 0RF
budesonide 0.25 mg/2 mL Suspension For Nebulization
0.25 mg inhalation R BID Qty: 0 0RF
guaifenesin 600 mg Tablet Extended Release 12hr
600 mg PO Q12 Qty: 0 0RF
lorazepam 1 MG tablet
1 mg PO BIDPRN PRN (Reason: anxiety) Qty: 4 0RF
Discontinued
levothyroxine 88 MCG tablet
88 mcg PO DAILY
prednisone 20 mg Tablet
10 mg PO DIRECTED Qty: 0 0RF
Rx Instructions:
Take 20 mg for 3 days and then 10 mg for 3 days then stop
Discharge Orders:
Discharge Patient (As Directed); Ordered 04/01/25
Ordered By: Joyce Russo
Discharge Date and Time
Print Language: GHANAIAN
--- NOTE | 2025-04-01 12:49 | W.PN.NEPH.PH ---
Today's Communication / Plan
-
dc
Assessment/Plan
-
Assessment
Presentation with weakness and ambulatory dysfunction
ESRD Saturday
Hypertension
Paroxysmal atrial fibrillation
COPD
Bronchitis
Shortness of breath
Left AV fistula
Plan
for dc
next HD at [facility] tomorrow
-
-
Date of Service: April 01, 2025
CC / HPI / ROS
-
Chief Complaint:
ESRD
History of Present Illness:
tolerated HD yesterday, some cramping on tx, stopped 15min early
BP stable
Review of Systems:
reports mild epigastric pain, intermittent, no radiation, no exacerbators/alleviators
Labs
-
Labs:
WBC 6.0 10^3/uL (4.8-10.8) 03/30/25 06:31
RBC 3.45 10^6/uL (4.20-5.40) L 03/30/25 06:31
Hgb Cancelled 03/31/25 10:46
Hct Cancelled 03/31/25 10:46
Plt Count 163 10^3/uL (130-400) 03/30/25 06:31
Sodium Cancelled 03/31/25 10:46
Potassium Cancelled 03/31/25 10:46
Chloride Cancelled 03/31/25 10:46
Carbon Dioxide Cancelled 03/31/25 10:46
BUN 24 mg/dl (7-17) H 03/30/25 06:31
Creatinine 2.3 mg/dL (0.6-1.0) H 03/30/25 06:31
eGFR 21.09 03/30/25 06:31
Glucose 83 mg/dl (70-99) 03/30/25 06:31
Calcium 9.4 mg/dl (8.4-10.2) 03/30/25 06:31
Albumin 4.0 g/dl (3.5-5.0) 03/29/25 19:38
Physical Exam
-
Vital Signs:
Vital Signs
Temp Pulse Resp BP Pulse Ox
98.2 F 61 16 154/69 95
04/01/25 08:00 04/01/25 11:26 04/01/25 11:26 04/01/25 08:17 04/01/25 11:26
Cardiovascular:: Regular rate and rhythm
Respiratory:: Bilateral: Coarse
Lung Excursion:: Normal
Abdomen:: Nontender and Soft
Bowel Sounds:: Normal
Extremity Edema:: None: Bilateral:
[2025-04-01 16:07] VITALS: BP 138/62
[2025-04-01] MEDS: HEPARIN SC (17:05)
== END 2025-04-01 18:08 | disposition home health service (06) ==
LOC: 4 WEST ACU 23:48
PROVIDERS: Physician Assistant; ADMITTING PHYSICIAN Internal Medicine; ATTENDING PHYSICIAN Student in an Organized Health Care Education/Training Program; CONSULT PHYSICIAN Specialist; EMERGENCY PHYSICIAN Emergency Medicine; FAMILY PHYSICIAN Family Medicine
DX: R53.1 Weakness (principal); R26.2 Difficulty in walking, not elsewhere classified; M54.9 Dorsalgia, unspecified; E78.00 Pure hypercholesterolemia, unspecified; F31.9 Bipolar disorder, unspecified; I12.0 Hypertensive chronic kidney disease with stage 5 chronic kidney disease or end stage renal disease; N18.6 End stage renal disease; E03.9 Hypothyroidism, unspecified; G89.29 Other chronic pain; F11.20 Opioid dependence, uncomplicated; F90.9 Attention-deficit hyperactivity disorder, unspecified type; J44.9 Chronic obstructive pulmonary disease, unspecified; I48.0 Paroxysmal atrial fibrillation; M47.816 Spondylosis without myelopathy or radiculopathy, lumbar region; M53.3 Sacrococcygeal disorders, not elsewhere classified; K44.9 Diaphragmatic hernia without obstruction or gangrene; I51.7 Cardiomegaly; F41.9 Anxiety disorder, unspecified; Z60.2 Problems related to living alone; Z87.891 Personal history of nicotine dependence; Z98.82 Breast implant status; Z81.8 Family history of other mental and behavioral disorders; Z91.158 Patient's noncompliance with renal dialysis for other reason; Z99.2 Dependence on renal dialysis; Z79.82 Long term (current) use of aspirin; Z79.890 Hormone replacement therapy; Z79.51 Long term (current) use of inhaled steroids; Z88.5 Allergy status to narcotic agent; Z79.52 Long term (current) use of systemic steroids; Z95.828 Presence of other vascular implants and grafts; Z79.899 Other long term (current) drug therapy; Z11.52 Encounter for screening for COVID-19
CPT/HCPCS: 71046; 72100; 72220; 80048; 80053; 81003; 81015; 83735; 84443; 85025; 85027; 87070; 87086; 87502; 87811; 93005; 94640; 97162; 99285; G0257; G0378; P9047